=== PATIENT | female | born 1990 | race Caucasian/White ===

== ENCOUNTER 2023-11-06 11:27 | Outpatient (CLI) | payer OTHER, SELFPAY ==
[2023-11-06 13:15] LABS: HCG,Quantitative 77996 mIU/ml (0-5.42)
[2023-11-07 03:37] LABS: Progesterone 12.3 ng/mL (.)
== END 2023-11-06 23:59 | disposition home or self-care (01) ==
LOC: LAB 11:33
PROVIDERS: Visit Provider Obstetrics & Gynecology
DX: N92.6 Irregular menstruation, unspecified (principal)
CPT/HCPCS: 36415; 84144; 84702

== ENCOUNTER 2023-11-11 12:41 | Outpatient (CLI) | payer OTHER, SELFPAY ==
[2023-11-11 13:49] LABS: HIV (1&2) Antibody Rapid NON REACTIVE
[2023-11-11 14:00] LABS: Basophils % 0.2 % (0.1-2.0); Eosinophils % 0.4 % (0.1-12.0); Hematocrit 40.7 % (37.0-47.0); Hemoglobin 13.7 g/dL (12.2-16.2); Lymphocytes % 12.1 % (10-50); Mean Corpuscular HGB Conc 33.7 g/dL (31.8-35.4); Mean Corpuscular Hemoglobin 29.9 pg (27.0-31.2); Mean Corpuscular Volume 88.9 fl (81-99); Mean Platelet Volume 7.4 fl (7.4-10.4); Monocytes # 0.4 K/mm3 (0.1-1.0); Monocytes % 4.8 % (1.7-9.3); Neutrophils # 6.7 K/mm3 (1.8-7.8); Neutrophils % 82.6 % (37.0-80.0); Platelet Count 387 K/mm3 (142-424); Red Blood Count 4.58 M/mm3 (4.20-5.40); Red Cell Distribution Width 13.6 % (11.5-17.5); White Blood Count 8.1 K/mm3 (4.8-10.8)
[2023-11-13 08:49] LABS: HCV Ab Non Reactive (Non Reactive); Hepatitis B Surface Antigen Negative (Negative); Rubella Antibodies, IgG 5.73 index (Immune >0.99)
[2023-11-13 12:53] LABS: Rapid Plasma Reagin Ab Titer Non Reactive titer (NonRea<1:1)
[2023-11-14 06:55] LABS: Neisseria gonorrhoeae, NAA Negative (Negative)
== END 2023-11-11 23:59 | disposition home or self-care (01) ==
LOC: LAB 13:09
PROVIDERS: Visit Provider Obstetrics & Gynecology
DX: Z34.90 Encounter for supervision of normal pregnancy, unspecified, unspecified trimester (principal)
CPT/HCPCS: 86803; 86703; 85025; 86593; 86762; 86850; 87086; 87340; 87491; 87591

== ENCOUNTER 2024-01-29 12:46 | Outpatient (CLI) | payer OTHER, SELFPAY ==
--- NOTE | 2024-01-29 12:46 | US_ITS ---
PROCEDURE: US OB /MATERNAL DETAIL CLINICAL INDICATION: US OB Complete 20 week Anatomy Scan COMPARISON: No exams were available for comparison FINDINGS: Transabdominal sonographic images of the pelvis were obtained. From her established due date she is 20 weeks 2 days. Single viable intrauterine gestation. Breech position. Placenta: Anteriorplacenta grade 1. There is a placental Benavidez seen. There is a marginal cord insertion. There is an average amount of fluid. The cervix appears satisfactory. Closed and measuring 4.5 cm in length. Complete survey performed and was unremarkable on the submitted images as in PACS. No discrete anomalies identified on survey imaging by technologist. Active fetus. Three-vessel cord with satisfactory umbilical cord insertion. 4- chamber heart noted. Situs, aortic arch, LVOT, RVOT, three-vessel view appear normal. Survey of brain & ventricles Unremarkable. Cerebellum, thalamus, choroid plexus, cisterna magna appear normal. Face and neck survey unremarkable. Profile, nasion, lips and nose appeared normal. Diaphragm and chest views unremarkable. Abdomen: Both kidneys noted and unremarkable. Stomach and bladder noted and satisfactory. Spine: Survey of the spine satisfactory with no anomalies identified nor imaged. Cervical, thoracic, lower spine appear normal. Both arms and legs noted. Amniotic Fluid: Adequate. Measurements: Average ultrasound age 20weeks 4days. Estimated due date by ultrasound age 0206/13/2024. Estimated weight 343g BPD = 20weeks 6days, 68 percentile HC = 20weeks 6days, 67 percentile AC = 20weeks 0 days, 34 percentile FL = 20weeks 3days, 47 percentile Growth Percentile= 44 Heart Rate = 150bpm Cerebellum = 20weeks 1day, 67 percentile Humerus = 21weeks 0 days, 71 percentile HC/AC is 1.26 FL/BPD is 0.68 FL/AC is 0.23 IMPRESSION: 1. Viable fetus in the breech presentation with an anterior placenta grade 1. 2. There is a placental Benavidez and there appears to be a marginal cord insertion. Suggest a maternal medicine consult. 3. The fluid is within normal limits. 4. Anatomical scan appears normal. 5. biometry is consistent with the dates. Dictated by: Jesús Villarreal MD 01/30/2024 07:36 Jesús Villarreal MD in OV 01/30/2024 07:36
== END 2024-01-29 23:59 | disposition home or self-care (01) ==
LOC: RAD 12:46
PROVIDERS: PCP Obstetrics & Gynecology; Visit Provider Obstetrics & Gynecology
DX: Z36.3 Encounter for antenatal screening for malformations (principal); Z3A.20 20 weeks gestation of pregnancy
CPT/HCPCS: 76811

== ENCOUNTER 2024-04-07 13:45 | Outpatient (CLI) | payer OTHER, SELFPAY ==
[2024-04-07 14:17] LABS: Basophils # 0.1 K/mm3 (0-0.2); Basophils % 0.4 % (0.1-2.0); Eosinophils # 0.1 K/mm3 (0.0-0.4); Hematocrit 34.8 % (37.0-47.0); Hemoglobin 11.9 g/dL (12.2-16.2); Lymphocytes # 1.8 K/mm3 (0.7-4.5); Lymphocytes % 16.3 % (10-50); Mean Corpuscular HGB Conc 34.3 g/dL (31.8-35.4); Mean Corpuscular Hemoglobin 30.4 pg (27.0-31.2); Mean Corpuscular Volume 88.5 fl (81-99); Mean Platelet Volume 7.2 fl (7.4-10.4); Monocytes # 0.8 K/mm3 (0.1-1.0); Monocytes % 6.9 % (1.7-9.3); Neutrophils # 8.3 K/mm3 (1.8-7.8); Neutrophils % 75.3 % (37.0-80.0); Platelet Count 383 K/mm3 (142-424); Red Blood Count 3.93 M/mm3 (4.20-5.40); Red Cell Distribution Width 13.4 % (11.5-17.5)
[2024-04-07 14:59] LABS: Glucose,Fasting 110 mg/dl (74-100)
[2024-04-07 15:44] LABS: RPR W/RFX Titers Nonreactive (Nonreactive)
[2024-04-07 15:56] LABS: Glucose 1 Hour 117 mg/dL (74-100)
== END 2024-04-07 23:59 | disposition home or self-care (01) ==
LOC: LAB 13:46
PROVIDERS: Visit Provider Obstetrics & Gynecology
DX: Z34.90 Encounter for supervision of normal pregnancy, unspecified, unspecified trimester (principal)
CPT/HCPCS: 36415; 82951; 85025; 86592

== ENCOUNTER 2024-05-20 17:11 | Outpatient (CLI) | payer OTHER, SELFPAY | END 2024-05-20 23:59 | disposition home or self-care (01) | LOC: LAB.DROPOF 17:11 | PROVIDERS: PCP Obstetrics & Gynecology; Visit Provider Obstetrics & Gynecology | DX: Z34.03 Encounter for supervision of normal first pregnancy, third trimester (principal) | CPT/HCPCS: 86403 ==

== ENCOUNTER 2024-05-22 11:09 | Inpatient (IN) | payer OTHER, SELFPAY ==
[2024-05-22 10:19] VITALS: BMI 29.0
[2024-05-22 10:20] VITALS: BP 154/87; PULSE 102; RESP 18; TEMP 37.2; O2SAT 98; BMI 29.0
[2024-05-22 10:22] LABS: Microscopic, Urine URINE MICROSCOPIC (MICROSCOPIC)
[2024-05-22 10:25] LABS: Appearance,Urine CLEAR (Clear); Bilirubin,Urine Negative (Negative); Blood, Urine 2+ (Negative); Color,Urine YELLOW (Yellow); Glucose,Urine (UA) Negative (Negative); Ketones,Urine Negative (Negative); Leukocyte Esterase,Urine Negative (Negative); Nitrate,Urine Negative (Negative); PH,Urine 6.5 (5.0-8.5); Protein,Urine TRACE (Negative); Specific Gravity, Urine >= 1.030 (1.005-1.030); Urobilinogen,Urine 0.2 EU/dl (0.2)
[2024-05-22 10:33] LABS: Bacteria,Urine Trace /lpf; Mucus,Urine Trace /lpf; WBC,Urine Occasional #/hpf (0-3)
[2024-05-22 10:36] LABS: Amphetamine/Metha Screen,Urine Negative ng/ml (<1000); Benzodiazepines Screen,Urine Negative ng/ml (<200)
[2024-05-22 10:37] LABS: Barbiturates Screen,Urine Negative ng/ml (<200); Cannabinoid Screen,Urine Negative ng/ml (<50)
[2024-05-22 10:38] LABS: Cocaine Screen,Urine Negative ng/ml (<300)
[2024-05-22 10:39] LABS: Methadone Screen,Urine Negative ng/ml (<300)
[2024-05-22 10:40] LABS: Opiate Screen,Urine Negative ng/ml (<300); Phencyclidine Screen,Urine Negative ng/ml (<25)
[2024-05-22 11:05] LABS: Fetal Membrane Rupture (Rapid) Positive (Negative)
[2024-05-22 12:08] LABS: Basophils % 0.3 % (0.1-2.0); Eosinophils # 0.1 K/mm3 (0.0-0.4); Eosinophils % 0.6 % (0.1-12.0); Hematocrit 33.8 % (37.0-47.0); Hemoglobin 11.4 g/dL (12.2-16.2); Lymphocytes # 1.5 K/mm3 (0.7-4.5); Lymphocytes % 12.9 % (10-50); Mean Corpuscular HGB Conc 33.7 g/dL (31.8-35.4); Mean Corpuscular Hemoglobin 29.2 pg (27.0-31.2); Mean Corpuscular Volume 86.7 fl (81-99); Mean Platelet Volume 9.6 fl (7.4-10.4); Monocytes # 0.8 K/mm3 (0.1-1.0); Monocytes % 6.6 % (1.7-9.3); Neutrophils # 9.1 K/mm3 (1.8-7.8); Platelet Count 300 K/mm3 (142-424); White Blood Count 11.5 K/mm3 (4.8-10.8)
[2024-05-22 12:36] LABS: RPR W/RFX Titers Nonreactive (Nonreactive)
[2024-05-22] MEDS: DEXTROSE 5%-LACTATED RINGERS 1,000 ML 125 ML IV (12:48)
[2024-05-22] MEDS: LACTATED RINGERS 1000ML 1,000 ML 500 ML IV (12:48)
[2024-05-22] MEDS: AMPICILLIN SODIUM 2 GM in 0.9 % SODIUM CHLORIDE 100 ML IV (12:49)
--- NOTE | 2024-05-22 15:57 | P.PNANES_ITS ---
[facility] Disclaimer: The information contained in this section may have been updated after the patient was seen, as this information can be updated by other users. Medical History Awaiting removal of contraceptive intrauterine device (IUD) Surgical History No significant past surgical history Family History Other Cancer Heart attack Social History (Updated 05/22/24 @ 11:15 by Judy Castaneda RN) Smoking Status: Never smoker alcohol intake: never substance use type: denies use current occupational status: employed Travel in the last 8 weeks: None [facility] Anesthesia Checklist Patient Identification Patient Identification: Verbal (Name & ) Structural Data Admitted From: Inpatient Planned Operative Procedure/s: labor epidural Consent for Planned Operative Procedure(s) Verified: Yes Airway Assessment Mallampati Score:: Class II C-Spine Mobility Assessed: Yes TMJ Mobility Assessed: Yes Dentition: Good Dentition Neurological Assessment Level of Consciousness: Awake, Alert and Appropriate Anesthesia Plan Anesthesia Risk discussed: Yes Anesthesia Plan: Verified ASA Class: II Anesthesia Type: Epidural
--- NOTE | 2024-05-22 16:11 | EXP.HP ---
History of Present Illness *Admission Date: 05/22/24 *Reason for visit:: Labor *History of present illness: Melanie Morales is a 34 yo who presented at 36w4d with SROM around 0730 on 05/22/24. BRAYAN established by 9wk US. Pt reports clear fluid. She is feeling her contractions every 3-7 minutes. Endorses good movement. 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 A+, antibody negative, rubella immune, hepatitis B negative, hepatitis C negative, RPR negative, HIV negative 1 hour GTT: 117 GBS negative PFSH PFSH Disclaimer: The information contained in this section may have been updated after the patient was seen, as this information can be updated by other users. Medical History Awaiting removal of contraceptive intrauterine device (IUD) Surgical History No significant past surgical history Family History Other Cancer Heart attack Social History (Updated 05/22/24 @ 15:58 by Rashel Kim CRNA) Smoking Status: Never smoker alcohol intake: never substance use type: denies use current occupational status: employed Travel in the last 8 weeks: None Have you lived/traveled outside US in past 30 days?: No Contact w/someone who lives/traveled outside US past 30 days?: No Exposure to someone with infectious disease in past 14 days?: No Do you have a fever (greater than 100.4 F or 38 C)?: No Have you tested positive for COVID-19: No Exposed to someone with COVID-19 in past 14 days?: No Do you have a sore throat?: No Do you have a cough?: No Do you have any weakness?: No Are you experiencing any nausea/vomitting?: No Do you have any diarrhea?: No Are you experiencing any unusual bleeding?: No Do you have any muscle aches/pain?: No Do you have any abdominal pain?: No Are you experiencing loss of taste or smell?: No Other Medical History Have you received the Flu Vaccine for this season: No Have you received the Pneumonia Vaccine: No Review of Systems Review of Systems Review of systems (narrative): Review of Systems Constitutional: Denies fever, chills, and sweats Eyes: Denies vision change/ pain Respiratory: Denies cough and shortness of breath Cardiovascular: Denies chest pain and lightheadedness Gastrointestinal: Admits abdominal pain with contractions. Denies nausea, vomiting. Genitourinary: Denies dysuria and incontinence. enodrses LOF, clear fluid Musculoskeletal: Denies shoulder pain and back pain Neurological: Denies change in speech or headaches Meds Home Medications and Allergies Home Medications ?Medication ?Instructions ?Recorded ?Confirmed ?Type vits no.126-ferrous fum 1 tab PO DAILY 12/15/23 05/20/24 History 28 mg iron-folic acid 800 mcg tablet (Classic ) New Prescriptions to Start Prescriptions: Allergies Allergy/AdvReac Type Severity Reaction Status Date / Time No Known Allergies Allergy Verified 05/20/24 11:13 Exam Data for Last 24 hours Vital signs and Labs for Last 24 Hours: Temp Pulse Resp BP Pulse Ox O2 Del Method 98.9 F 102 H 18 154/87 H 98 Room Air 05/22/24 10:20 05/22/24 10:20 05/22/24 10:20 05/22/24 10:20 05/22/24 10:20 05/22/24 10:20 Laboratory Results - last 24 hr 05/22/24 10:14: Urine Color Yellow, Urine Appearance Clear, Urine pH 6.5, Ur Specific [place] >= 1.030, Urine Protein Trace, Urine Glucose (UA) Negative, Urine Ketones Negative, Urine Blood 2+ A, Urine Nitrate Negative, Urine Bilirubin Negative, Urine Urobilinogen 0.2, Ur Leukocyte Esterase Negative, Urine RBC 10-20, Urine WBC Occasional, Ur Squamous Epith Cells 5-10, Urine Bacteria Trace, Urine Mucus Trace, Urine Opiates Screen Negative, Urine Methadone Screen Negative, Ur Barbituates Screen Negative, Ur Phencyclidine Scrn Negative, Ur Amphetamines Screen Negative, U Benzodiazepines Scrn Negative, Urine Cocaine Screen Negative, U Marijuana (THC) Screen Negative 05/22/24 10:40: Membrane Rupture Positive A 05/22/24 11:42: WBC 11.5 H, RBC 3.90 L, Hgb 11.4 L, Hct 33.8 L, MCV 86.7, MCH 29.2, MCHC 33.7, RDW 13.0, Plt Count 300, MPV 9.6, Neut % (Auto) 79.0, Lymph % (Auto) 12.9, [place] % (Auto) 6.6, Eos % (Auto) 0.6, Baso % (Auto) 0.3, Neut # (Auto) 9.1 H, Lymph # (Auto) 1.5, [place] # (Auto) 0.8, Eos # (Auto) 0.1, Baso # (Auto) 0.0, RPR w/Rflx to Titer Nonreactive, Blood Type A Positive, Antibody Screen Negative I & O for Last 24 hours: Intake & Output 05/19/24 05/20/24 05/21/24 05/22/24 23:59 23:59 23:59 23:59 Weight 159 lb Narrative: General: patient is alert oriented in no acute distress and responds appropriately to questions. HEENT: NCAT, EOMI, moist mucous membranes, neck supple with full ROM Cardiovascular: RRR +S1/S2, no murmurs or rubs Pulmonary: Clear to auscultation bilaterally, nonlabored breathing, symmetric chest rise Abdominal: Gravid abdomen appropriate for gestation. No guarding, rebound, or tenderness noted. Extremities: trace edema, no tenderness or cyanosis noted Skin: Normal turgor, intact, warm. Negative for erythema, pallor, petechia, or lesions Neurologic: Negative for sensory or motor deficit Psychiatric: Normal affect, normal thought process, good judgment and insight, no depression or anxious mood appreciated. *Routine HEENT Exam Head: Present normocephalic and atraumatic Eye: Present EOMI, PERRL and normal accommodation; Absent conjunctival icterus, scleral injection, nystagmus or exophthalmos ENT: Present mucous membranes moist *Routine Respiratory Exam Respiratory: Present CTA bilaterally, normal respiratory effort, able to speak in complete sentences and symmetric chest movement; Absent accessory muscle use, decreased breath sounds, rales, respiratory distress, wheezes, distant breath sounds or diminished air movement *Routine Cardiovascular Exam Cardiovascular: Present RRR, Normal S1 and Normal S2; Absent murmur or gallop *Routine Abdominal Exam Abdominal: Present soft and normoactive bowel sounds; Absent tenderness, distended, rebound or guarding *Routine Rectal Exam Rectal:: deferred *Routine Genitalia Exam Genitalia:: normal female Assessment and Plan *Assessment and plan (1) Carrier of fragile X syndrome: Status: Acute Category: Medical Code(s): Z14.8 - Genetic carrier of other disease (2) Retained intrauterine device (IUD) during : Status: Acute Category: Medical Code(s): O26.30 - Retained intrauterine contraceptive device in , unspecified trimester (3) labor in third trimester with delivery: Status: Acute Category: Medical Code(s): O60.14X0 - labor third trimester with delivery third trimester, not applicable or unspecified Plan - Monitor vitals - Admit to L&D for labor monitoring and delivery - We will monitor her for a few hours as she is making adequate cervical change without intervention. If necessary discussed r/b/a of augmentation with Pitocin, per protocol - External FHR and TOCO monitor - Exam on admission: /-1 - GBS neg/ Blood type: A+ - Pt recieved one dose of PCN for GBS unknown status and then GBS neg was verified. - Hemoglobin: 11.4, Plt: 300 - Plan for epidural anesthesia - Anticipate vaginal delivery of male infant: []
[2024-05-22] MEDS: OXYTOCIN/RINGERS LACTATE 30 UNITS/500 ML BAG IV (16:32)
[2024-05-22] MEDS: OXYTOCIN/RINGERS LACTATE 30 UNITS/500 ML BAG 40 UNITS IV (20:12)
--- NOTE | 2024-05-22 20:33 | P.PCN_ITS ---
Delivery Note Delivery Date:: 05/22/24 Delivery Time:: 20:07 Anesthesia Type: Epidural Was labor medically induced?: No Induction method: none Gestational age (weeks): 36 delivered prior to 39 weeks?: Yes Justification for early elective delivery:: Active Labor Infant Gender: Male at 1 minute: 8 (color and tone ) at 5 minutes: 8 Delivery Procedure:: Preoperative diagnosis: 1. at 36 completed this weeks gestation, vertex 2. Rh positive 3. GBS negative 4. Spontaneous rupture membranes at 730 this morning 5. Active labor 6. Retained IUD arm, prepregnancy 7. Fragile X carrier Postoperative diagnosis: 1. at 36 completed this weeks gestation, vertex 2. Rh positive 3. GBS negative 4. Spontaneous rupture membranes at 730 this morning 5. Active labor 6. Retained IUD arm, prepregnancy 7. Fragile X carrier EBL: 150mL Specimen: 1. Cord blood 2. Cord gases Findings: 1. Liveborn viable male infant. Apgars 8/8 at 1 and 5 minutes respectively. Weight: 6lb8oz. 2. First degree midline perineal laceration Complications: None Procedure: Nonoperative spontaneous vaginal delivery Melanie Morales is a 34-year-old G1, P0 who presented this morning with regular painful contractions and leakage of fluid. Reports clear fluid with a large clots around 730 this morning. Without any augmentation she may have progressed to 7 cm. She received an epidural. Her contractions were noted to space out and she remains 7 for approximately 2 hours Pitocin was started for augmentation. She progressed to complete following that. The was noted to be in JASEN position. With effective maternal pushing there was a nonoperative spontaneous vaginal delivery at 2006. There was a nuchal cord x1 that was reduced without difficulty. The anterior right shoulder delivered, followed by the posterior shoulder without dystocia. The body and lower extremities delivered without difficulty. The was bulb suctioned and was crying immediately following delivery. The infant was placed on the maternal abdomen and greater than one minute was appreciated for delayed cord clamping. The umbilical cord was doubly clamped and cut. Cord blood and gasses were collected and sent for routine testing. The placenta delivered with cord traction and suprapubic contertraction. Pitocin was started. The uterus was firm and bleeding was minimal. The perineum, vaginal mcmullen, cervix, and paraurethral area were inspected thoroughly. There was a first The laceration was repaired in the usual fashion using 2-0 Vicryl suture. The laceration was hemostatic. The cervix and vaginal mcmullen were inspected and noted to be hemostatic. This conclu ded the delivery. The patient was counseled regarding the events of the delivery and repair. The patient tolerated the delivery well. All counts were correct by nursing. Mother and infant were doing well and bonding upon my leaving the delivery room. Laceration:: vaginal Placental Delivery Description: Spontaneous
[2024-05-22] MEDS: ACETAMINOPHEN 500MG TAB 1000 MG PO (21:03)
[2024-05-22] MEDS: BENZOCAINE-MENTHOL SPRAY 56GM CAN TP (21:04)
[2024-05-22] MEDS: WITCH HAZEL 40 PADS/BOX 1 EACH TP (21:04)
[2024-05-22] MEDS: IBUPROFEN 400 MG TABLET 800 MG PO (21:04)
[2024-05-23 07:28] LABS: Hematocrit 30.7 % (37.0-47.0); Hemoglobin 10.4 g/dL (12.2-16.2)
[2024-05-23 08:13] VITALS: BP 116/74; PULSE 82; RESP 16; TEMP 36.8; O2SAT 99
[2024-05-23] MEDS: IBUPROFEN 400 MG TABLET 800 MG PO ×2 (08:34→21:05)
[2024-05-23] MEDS: ACETAMINOPHEN 500MG TAB 1000 MG PO (08:34)
--- NOTE | 2024-05-23 08:59 | P.PN_ITS ---
Subjective *Date: 05/23/24 *Time: 10:43 Interval history: PPD # 1 s/p Feeling well. Pain controlled. Breast feeding. Lochia is appropriate. Voiding without difficulty and passing flatus. Tolerating regular diet. Denies fever/chills, chest pain and shortness of breath. No headaches, vision changes, lightheadedness/dizziness. No lower extremity swelling. Ambulating well ad hazel. Medical Exam Vital signs and Labs for Last 24 Hours: Vital Signs Temp Pulse Resp BP Pulse Ox O2 Del Method 05/22/24 10:20 98.9 F 102 H 18 154/87 H 98 Room Air Intake and Output 05/22/24 05/23/24 05/23/24 23:59 07:59 15:59 Output Total 500 / 500 Balance -500 / -500 Output: Output, Urine Amount 500 / 500 Laboratory Results - last 24 hr 05/22/24 10:14: Urine Color Yellow, Urine Appearance Clear, Urine pH 6.5, Ur Specific [place] >= 1.030, Urine Protein Trace, Urine Glucose (UA) Negative, Urine Ketones Negative, Urine Blood 2+ A, Urine Nitrate Negative, Urine Bilirubin Negative, Urine Urobilinogen 0.2, Ur Leukocyte Esterase Negative, Urine RBC 10-20, Urine WBC Occasional, Ur Squamous Epith Cells 5-10, Urine Bacteria Trace, Urine Mucus Trace, Urine Opiates Screen Negative, Urine Methadone Screen Negative, Ur Barbituates Screen Negative, Ur Phencyclidine Scrn Negative, Ur Amphetamines Screen Negative, U Benzodiazepines Scrn Negative, Urine Cocaine Screen Negative, U Marijuana (THC) Screen Negative 05/22/24 10:40: Membrane Rupture Positive A 05/22/24 11:42: WBC 11.5 H, RBC 3.90 L, Hgb 11.4 L, Hct 33.8 L, MCV 86.7, MCH 29.2, MCHC 33.7, RDW 13.0, Plt Count 300, MPV 9.6, Neut % (Auto) 79.0, Lymph % (Auto) 12.9, [place] % (Auto) 6.6, Eos % (Auto) 0.6, Baso % (Auto) 0.3, Neut # (Auto) 9.1 H, Lymph # (Auto) 1.5, [place] # (Auto) 0.8, Eos # (Auto) 0.1, Baso # (Auto) 0.0, RPR w/Rflx to Titer Nonreactive, Blood Type A Positive, Antibody Screen Negative 05/22/24 20:16: Cord ABG pH 05/23/24 07:09: Hgb 10.4 L, Hct 30.7 L I & O for Labs for Last 24 Hours: Intake & Output 05/20/24 05/21/24 05/22/24 05/23/24 23:59 23:59 23:59 23:59 Output Total 500 / 500 Balance -500 / -500 Weight 159 lb Head: Present atraumatic and normocephalic ENT: Present normal exam Neck: Present normal inspection and full ROM Respiratory: Present CTA bilaterally and normal respiratory effort Cardiac: Present Reg Rate and Rhythm GI: Present soft; Absent distention or tenderness Comments:: Uterine fundus firm and below umbilicus Rectal (female): Present deferred (female): Present deferred Extremities: Present normal inspection and full ROM Neuro: Present alert, awake and moves all extremities Assessment and Plan *Assessment and plan (1) Status post vaginal delivery: Status: Acute Category: Surgical (2) labor in third trimester with delivery: Status: Acute Qualifiers: Fetus number: single or unspecified fetus Qualified Code(s): O60.14X0 - labor third trimester with delivery third trimester, not truong licable or unspecified Category: Medical Code(s): O60.14X0 - labor third trimester with delivery third trimester, not applicable or unspecified (3) Marginal insertion of umbilical cord: Status: Acute Category: Medical (4) Retained intrauterine device (IUD) during : Status: Acute Qualifiers: Trimester: unspecified trimester Qualified Code(s): O26.30 - Retained intrauterine contraceptive device in , unspecified trimester Category: Medical Code(s): O26.30 - Retained intrauterine contraceptive device in , unspecified trimester Plan Continue routine care Encouraged increased ambulation AM Hgb 10.4 Plan d/c home PPD # 2 or PPD # 3
[2024-05-23] MEDS: WITCH HAZEL 40 PADS/BOX 1 EACH TP (16:17)
[2024-05-23 20:50] VITALS: BP 119/80; PULSE 86; RESP 17; TEMP 37; O2SAT 99
[2024-05-24 04:46] VITALS: BP 113/78; PULSE 93; RESP 16; TEMP 36.4; O2SAT 99
[2024-05-24 08:21] VITALS: BP 126/78; PULSE 88; RESP 16; TEMP 36.8; O2SAT 100
[2024-05-24] MEDS: IBUPROFEN 400 MG TABLET 800 MG PO (08:28)
[2024-05-24 08:50] LABS: Cord Blood PH 7.26 (7.35-7.45)
[2024-05-24 08:53] LABS: Cord Blood PH 7.38 (7.35-7.45)
--- NOTE | 2024-05-24 13:13 | EXP.DC.SUM ---
General Admission date:: 05/22/24 Discharge date: 05/24/24 HPI HPI HPI: Melanie Morales is a 34 yo who presented at 36w4d with SROM around 0730 on 05/22/24. BRAYAN established by 9wk US. Pt reports clear fluid. She is feeling her contractions every 3-7 minutes. Endorses good movement. 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 A+, antibody negative, rubella immune, hepatitis B negative, hepatitis C negative, RPR negative, HIV negative 1 hour GTT: 117 GBS negative Hospital Course Hospital Course Hospital Course: Melanie is a 34-year-old day #2 from a normal spontaneous vaginal delivery at 36 weeks and 4 days gestation after spontaneous rupture membranes and active labor. She did require low-dose Pitocin at around 7 cm for augmentation. She received an epidural for anesthesia. She delivered a live viable male infant on 05/22/2024 at 2006. Apgars were 8 and 8 at 1 and 5 minutes respectively. Infant name is Javier Riddle. No complications with delivery. No complications . Patient desired discharge home and routine discharge instructions reviewed in detail. Exam Data for Last 24 hours Vital signs and Labs for Last 24 Hours: Temp Pulse Resp BP Pulse Ox O2 Del Method 98.3 F 88 16 126/78 100 Room Air 05/24/24 08:21 05/24/24 08:21 05/24/24 08:21 05/24/24 08:21 05/24/24 08:21 05/24/24 08:21 Laboratory Results - last 24 hr 05/22/24 20:16: Cord ABG pH 7.38 05/22/24 20:21: Cord ABG pH 7.26 L I & O for Last 24 hours: Intake & Output 05/21/24 05/22/24 05/23/24 05/24/24 23:59 23:59 23:59 23:59 Output Total 500 / 500 Balance -500 / -500 Weight 159 lb Constitutional Constitutional: no acute distress *Routine HEENT Exam Head: Present normocephalic Eye: Present EOMI and PERRL ENT: Present mucous membranes moist *Routine Neck Exam Neck: Present supple; Absent lymphadenopathy *Routine Respiratory Exam Respiratory: Present CTA bilaterally *Routine Cardiovascular Exam Cardiovascular: Present RRR *Routine Abdominal Exam Abdominal: Present soft and normoactive bowel sounds; Absent tenderness *Routine Extremities Exam Extremities: Absent cyanosis, clubbing or edema *Routine Skin Exam Skin: Present warm; Absent rash *Routine Neurological Exam Neurological: Present alert and oriented X3 Results Data Completed and Pending Labs on day of discharge: Labs from last 24 hours 05/22/24 05/22/24 20:21 20:16 Cord ABG pH 7.26 L 7.38 DS: Diagnosis Discharge Diagnosis (1) Status post vaginal delivery: Status: Acute (2) labor in third trimester with delivery: Status: Acute Code(s): O60.14X0 - labor third trimester with delivery third trimester, not applicable or unspecified Qualifiers: Fetus number: single or unspecified fetus Qualified Code(s): O60.14X0 - labor third trimester with delivery third trimester, not applicable or unspecified (3) Marginal insertion of umbilical cord: Status: Acute (4) Retained intrauterine device (IUD) during : Status: Acute Code(s): O26.30 - Retained intrauterine contraceptive device in , unspecified trimester Qualifiers: Trimester: unspecified trimester Qualified Code(s): O26.30 - Retained intrauterine contraceptive device in , unspecified trimester Meds Home Medications and Allergies Home Medications ?Medication ?Instructions ?Recorded ?Confirmed ?Type vits no.126-ferrous fum 1 tab PO DAILY 12/15/23 05/23/24 History 28 mg iron-folic acid 800 mcg tablet (Classic ) acetaminophen 500 mg tablet 500 mg PO Q6H PRN fever or pain 05/24/24 Rx #30 tabs ferrous sulfate 325 mg (65 mg 325 mg PO DAILY #30 tabs 05/24/24 Rx iron) tablet,delayed release ibuprofen 800 mg tablet 800 mg PO Q8H PRN pain #60 tabs 05/24/24 Rx sennosides 8.6 mg tablet (Senna 8.6 mg PO BIDP PRN Constipation 05/24/24 Rx Lax) #60 tabs New Prescriptions to Start Prescriptions: acetaminophen Chelsea Santo ferrous sulfate Chelsea Santo ibuprofen Chelsea Santo sennosides [Senna Lax] Chelsea Santo Allergies Allergy/AdvReac Type Severity Reaction Status Date / Time No Known Allergies Allergy Verified 05/20/24 11:13 Discharge Plan Disposition Patient Disposition: Home, Self-Care Discharge Order Discharge Orders: Discharge Order (Routine); Ordered 05/24/24 Ordered By: Chelsea Santo Follow up Plan Follow up with: Chelsea Santo DO [Staff Physician] - Enter time for follow up Prescriptions/Medication Reconciliation: New sennosides [Senna Lax] 8.6 mg Tablet 8.6 mg PO BIDP PRN (Reason: Constipation) Qty: 60 2RF ibuprofen 800 mg tablet 800 mg PO Q8H PRN (Reason: pain) Qty: 60 2RF acetaminophen 500 mg tablet 500 mg PO Q6H PRN (Reason: fever or pain) Qty: 30 3RF ferrous sulfate 325 mg (65 mg iron) tablet,delayed release (DR/EC) 325 mg PO DAILY Qty: 30 3RF Continued Classic 28 mg iron- 800 mcg tablet 1 tab PO DAILY Problem Reconciliation Problems Reviewed?: Yes Patient Discharge Instructions ACTIVITY: Continue current activity DIET: regular diet Additional Instructions: Congratulations on the delivery of your sweet baby boy. It is my privilege to be your doctor and I am so thankful I could be a part of your special day. Discharge: -Take 800 mg Ibuprofen every 8 hours as needed for pain. You can also take 500-1000 mg of Tylenol in between doses, every 6-8 hours. -Colace can be taken 1-2 times per day as you need to soften your stool. Make sure to drink at least 8 cups of water per day. -Iron supplements can make you constipated. You can take iron tablets every other day if constipation is too bad. -Nothing in the vagina for 6 weeks - no intercourse, douching, tampons. No tub baths or swimming pools. -Do not lift greater than 20pounds for 2 weeks, this is the equivalent of 2 gallons of milk. -Reasons to return to L&D or call On-Call doctor - fever (greater than 100.4) - heavy vaginal bleeding (soaking through 1 pad in less than 2 hours or passing clots that are egg sized) - vaginal discharge (malodorous and/or purulent) - severe headaches, leg tenderness/edema, or any other symptoms that warrant immediate medical attention. depression/blues - Normal to feel anxious/overwhelmed for first 2 weeks - Talk to your doctor if: anxiety lasts over 2 weeks, trouble bonding with baby, withdrawing from other family members, thoughts of harming yourself or others Chelsea Santo DO [facility] [phone] *Nothing in the Vagina for 6 weeks* *No strenuous activity* *No heavy lifting* *No tub baths until okay's by MD* Print Language: Amharic Providers Primary Care Provider: Provider,Referral Admit Provider: Chelsea Santo Attending Provider: Chelsea Santo
== END 2024-05-24 17:45 | disposition home or self-care (01) | DRG 807 ==
LOC: OBOUT 11:10 → OB 11:10
PROVIDERS: Admitting Provider Obstetrics & Gynecology; Visit Provider Obstetrics & Gynecology
DX: O60.14X0 Preterm labor third trimester with preterm delivery third trimester, not applicable or unspecified (principal); Z37.0 Single live birth; Z3A.36 36 weeks gestation of pregnancy; O26.33 Retained intrauterine contraceptive device in pregnancy, third trimester; Z14.8 Genetic carrier of other disease
CPT/HCPCS: 36415; 59025; 80307; 81001; 82800; 84112; 85014; 85018; 85025; 86592; 86850; 94761; G0283; J0290; J3010; J7120

== ENCOUNTER 2024-10-12 12:01 | Outpatient (CLI) | payer OTHER, SELFPAY ==
--- OUTSIDE RECORDS SUMMARY | 2023-04-13 06:00 | XMS_ITS ---
Author Organization [facility] Address [address] [facility] [address] [place] [address] Care Team Providers Care Brush Stainer Name Role Phone Nisa Roblero Unavailable [phone] Lorena Candelaria Unavailable [phone] REASON FOR VISIT retained arm of IUD. also has paraguard. patient delayed surgery for removal. we are evaluating to make sure arm is still in in cervix and the paraguard..sdw Social History Sex Assigned At : Social History Observation Description Sex Assigned At Female Encounters Encounter Location Date Provider Diagnosis [facility] [address] [facility] [address] [place] [address] 04/13/2023 Lorena Candelaria Plan Of Treatment No Information Progress Notes * Chilo MORALESOB: 0 (34 yo F)Acc No.[id number]:04/13/2023 Progress Note Patient: Melanie English Provider: Leroy Candelaria DO :1990 A ge:33 Y S ex:Female Date:04/13/2023 Address:[address] [place], [place] [id number] Subjective: * Chief Complaints: * r etained arm of IUD. also has paraguard. patient delayed surgery for removal. we are evaluating to make sure arm is still in in cervix and the paraguard..sdw * Electronic signature of Preeti Candelaria DO on 10/12/2024 at 12:06 PM EDT Sign off status: Pending Visit Status: R /S (Rescheduled) * Provider: Leroy Candelaria DO Date: 06/14/2022 Generated for Karla rea/Jackie/Anuradhaitting on: 0 10/12/2024 12:06 PM EDT
--- OUTSIDE RECORDS SUMMARY | 2023-05-14 09:00 | XMS_ITS ---
Author Organization [facility] Address [address] [facility] [address] [place] [address] Care Team Providers Care Special Education Paraprofessional Name Role Phone Nisa Roblero Unavailable [phone] Lorena Candelaria Unavailable [phone] REASON FOR VISIT 1 Month F/U (retained IUD) Social History Sex Assigned At : Social History Observation Description Sex Assigned At Female Encounters Encounter Location Date Provider Diagnosis [facility] [address] [facility] [address] [place] [address] 05/14/2023 Lorena Candelaria Plan Of Treatment No Information Progress Notes * Chilo MORALESOB: 0 (34 yo F)Acc No.[id number]:05/14/2023 Progress Note Patient: Mleanie English Provider: Leroy Candelaria DO :1990 A ge:33 Y S ex:Female Date:05/14/2023 Address:[address] [place], [place] [id number] Subjective: * Chief Complaints: * 1 Month F/U (retained IUD) * Electronic signature of Preeti Candelaria DO on 10/12/2024 at 12:06 PM EDT Sign off status: Pending Visit Status: R /S (Rescheduled) * Provider: Leroy Candelaria DO Date: 0 05/14/2023 Generated for Karla rea/Jackie/Anna Mariesmitting on: 0 10/12/2024 12:06 PM EDT
--- OUTSIDE RECORDS SUMMARY | 2024-10-12 12:06 | XMS_ITS | Data Portability ---
Author Organization [facility] [facility] Address [address] [place] [address] Care Team Providers Care Electrical Wirer Name Role Phone TUNG LUKE Primary Care Provider Assessment No assessment recorded. Plan of Treatment Reminders Order Date Submit Date Provider Last Modified By Organization Details Last Modified Time Details Appointments FOLLOW UP [facility] 2024 01:10P M TUNG LUKE PA-C Not available Not available Not available Lab None recorded. Referral None recorded. Procedures None recorded. Surgeries None recorded. Imaging None recorded. Medication Orders tretinoin 0.05 % topical cream 2024 025 [facility] #[id number], [address], [id number], 07/11/2024 15:54:01 spironola ctone 25 mg tablet 2024 025 [facility] #[id number], [address], [id number], 07/11/2024 15:54:01 clindamyc in 1 % lotion 2024 025 [facility] #[id number], [id number], 07/11/2024 15:54:01 dicyclomi ne 10 mg capsule 2018 019 INTERFACE [facility] #[id number], [address], [place], [place], [id number], 04/12/2019 11:17:49 sulfameth oxazole 800 mg-trimet hoprim 160 mg tablet 2016 017 [email or web address] [facility] #[id number], [address], [place], [place], [id number], 04/12/2019 11:01:03 Patient TargetsNo targets recorded. Patient InstructionsNo instructions recorded. Reason for Referral None Reported. 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 From Automated Load;Provi danna: Shania Jonas tatus: Active Not Available [facility] 6 09:35:20 Acne 48963984 [facility] 20[facility] 5 13:13:33 Folliculi tis 52506799 Active 2024 [facility] 5 13:21:24 Problem Notes Documentation Provider Name and Address Organization Details Recorded Time Division Order Analyst Consult Note : [address] [address]LPXXAWLT, Ellie (id #[id number], : 1990) [facility] [address] [address] Date: 07/13/2024RE: Melanie Morales, : 1990, PT ID #[id number] Luke PA-C, I would like to thank you for referring Melanie Morales to our practice for consultation and evaluation. I have enclosed a copy of the office evaluation for your records. Sincerely, Electronically Signed by: TUNG LUKE [facility]-C, [facility] Reason/Date Follow-Up Acne 07/11/2024 - 01:00PM - [place] [place] History of Present IllnessPatient is here to follow up on acne Location: face, chest, backPrior treatments: Dash 50mg 1 PO BID, avar greenCurrently using: tretinoin 0.1% creamReports: Pt started using tretinoin after giving birthPt would like to be put on spironolactonePt currently on control and not breast feedingPt accompanied by baby Pt LV: 03/2022 with BrayeReview of SystemsROS as noted in the HPIPhysical ExamConstitutional: Patient is in no apparent distress and appears in good general healthNeurological: Alert and oriented to person, place, and timePsychiatric: Pleasant and cooperative Acne skin exam was performed:The areas examined include: scalp, hair, face, eyelids, lips, ears, neck, chest, back, right upper extremity, left upper extremity. Any detailed findings documented below: PIE on cheeks folliculocentric erythematous pustules on the buttockProcedure DocumentationNone recordedAssessment/Plan1. Acne-Pt has used Spironolactone 50mg BID and Tretinoin 0.1% previouslyPt was pleased with results yielded with usePt does plan to start OCP norethindrone Discussed starting low dose spironolactone Spironolactone can help decrease oiliness and reduce hormonal type acne. It is not FDA approved for acne, but frequently prescribed. Side effects discussed with pt: These include increased potassium, lowered BP, CHRISTIANSON, dizziness, fatigue, light headedness, menstrual irregularities, breast tenderness, and defects. Use contraception when taking this medication, as it can cause feminization of a male fetus. The FDA has assigned a black box warning to this drug related to tumor growth in rats with chronic use. Per pt, no h/o kidney issues.Must be seen at regular intervals to continue receiving medication. Will send Spironolactone 25mg 1 po BID Topical retinoid prescribed: tretinoin. Retinoids can cause irritation. Apply pea-sized amount to dry clean skin at night - start a few times a week, then work up to every other to every night, depending on how skin reacts. Avoid eyes and facial folds. Dryness and irritation is common, especially in the first few weeks. May apply moisturizer over retinoid to reduce irritation. Stop use and call clinic with severe irritation. Sun protect area of application. Do not use during or . Handout explaining use provided. 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 Folliculitis-The nature of the condition was explained. Worse with sweating, heat, and occlusion. Try to avoid these. Shower immediately after exercising or excessive sweating. Avoid tight-fitting clothing. Clindamycin 1% lotion prescribed to use qday, BID when flaring.Benzoyl peroxide OTC wash recommended - leave this on for 5 mins before washing. Explained chronic nature of the condition and that it tends to recur. Follow up in 4 bmthduQ73.8: Other specified follicular disorders clindamycin 1 % lotion - apply to buttock QAM, BID when flaring Qty: (1) 60 mL bottle Refills: 3 Pharmacy: [facility] #[id number] Return to Office TUNG LUKE PA-C for FOLLOW UP [facility] at [facility] on 11/08/2024 at 01:10 PM SARITA Benjamin [facility] 07/18/2024 08:04:06 Medical Equipment None Reported. Allergies No known drug allergies Medications Name Sig Start Date Stop Date Status Note LastModified by Organization Details LastModified Time tretinoin 0.1 % topical cream APPLY A PEA SIZED AMOUNT BY TOPICAL ROUTE ONCE DAILY AT BEDTIME 2022 active Not Available Not Available Not Avai lable ketoconazol e 2 % shampoo APPLY TO THE AFFECTED AREA(S), LATHER, LEAVE IN PLACE FOR 5 MINUTES, AND THEN RINSE OFF WITH WATER BY TOPICAL ROUTE ONCE DAILY 2022 active Not Available Not Available Not Avai lable fluconazole 150 mg tablet take one tab po x 1 dose and repeat x 1 dose in 3 days 04/12 completed Not Available Not Available Not Available tretinoin 0.05 % topical cream apply pea sized amount to clean dry face 2-3 nights per week, can increase to nightly as tolerated 2024 active Not Available Not Available Not Avai lable sulfamethox azole 800 mg-trimetho prim 160 mg tablet Take 1 tablet every 12 hours by oral route. 04/12 completed Not Available Not Available Not Available spironolact one 25 mg tablet 1 po BID 2024 active Not Available Not Available Not Avai lable hydroxyzine HCl 25 mg tablet 1/2 to 1 tablet as needed 2016 active Not Available Not Available Not Avai lable dicyclomine 10 mg capsule Take 1 capsule 3 times a day by oral route as needed. 2018 active Not Available Not Available Not Avai lable spironolact one 50 mg tablet Take 1 tablet twice a day by oral route. 04/12 completed Not Available Not Available Not Available clindamycin 1 % lotion apply to buttock QAM, BID when flaring 2024 active Not Available Not Available Not Avai lable norethindro ne active Not Available Not Available Not Available Vitals Date Recorded Body height Body weight Body mass index (BMI) Body temperature Systolic blood pressure Diastolic blood pressure Provider Name and Address Organization Details Last Updated DateTime 7 157.48 cm 89098.2 g 19.2 kg/m2 98 [degF] 100 mm[Hg] 60 mm[Hg] Chacha Beth [facility] 7 13:01:26 Date Recorded Body weight Body mass index (BMI) Body height Body temperature Heart rate Respiratory rate Oxygen saturation Oxygen saturation in Arterial blood by Pulse oximetry Systolic blood pressure Diastolic blood pressure Provider Name and Address Organization Details Last Updated DateTime 9 71316.6 8 g 22.1 kg/m2 157.48 cm 97.8 [degF] 86 /min 16 /min 99 % 99 % 100 mm[Hg] 64 mm[Hg] Charisse Salvador [facility] 9 11:00:02 Social History Question Answer Notes LastModified by Organizat ion Details LastModified Time Tobacco Smoking Status Never Smoker [facility] 05/23/2016 13:02:16 What Is Your Level Of Caffeine Consumption? Occasional [email or web address] Information not available 04/12/2019 How Much Tobacco Do You Chew? None [email or web address] Information not available 04/12/2019 Sunscreen Use? Yes [email or web address] Informatio n not available 07/11/2024 Tanning Bed Use No [email or web address] Informati on not available 07/11/2024 Are You Or Trying To Become ? No [email or web address] Information not available 07/11/2024 Are You On Control? Yes [email or web address] Information not available 07/11/2024 Are You ? No Information not available 07/11/2024 Marital Status [email or web address] Informati on not available 04/12/2019 How Much Tobacco Do You Smoke? No [email or web address] Information not available 04/12/2019 Sex: Unknown Functional Status Question Answer Note LastModified by Organizat ion Details LastModified Time What is your level of alcohol consumption? None [email or web address] Information not available 04/12/2019 Do you or have you ever used smokeless tobacco? 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 Never used electronic cigarettes [email or web address] Information not available 04/12/2019 Mental Status None recorded. Family History Relationship Description Onset Age of this Age Resolved Age Notes LastModified by Organization Details LastModified Time Father No current problems or disability [email or web address] Not available 06/25 12:54:43 Mother No current problems or disability [email or web address] Not available 06/25 12:54:43 Medical History Condition Response Skin Cancer N Autoimmune disease N Squamous Cell Carcinoma N Basal Cell Carcinoma N Melanoma N Acne Y Gynecological HistoryNo gynecological history recorded. Obstetrics History GPAL:G 0 P 0 0 0 0 Past Encounters Encounter ID Performer Location Encounter Start Date Encounter Closed Date Diagnosis/Indication Diagnosis SNOMED-CT Code Diagnosis ICD10 Code Diagnosis Note [id number] AIME PATE PA-C [address] [place] [address] 05/23/2016 12:53:49 05/26/2016 14:06:09 Abscess of axilla 25806331 L02.419 appears to have started out as folliculit is and progressed . advised pt to use warm wet compresses for several min multiple times a day on area. If not improving on the antibiotic or if worsens, rtc. 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 (needs my name and npi number as well as well as diagnosis code) Irritable bowel syndrome with diarrhea 698831865 K58.0 rx as needed Anxiety 19374658 F41.9 advised on ashwangga or L-theanine , meditation and deep breathing apps as well. [id number] TUNG LUKE PA-C [place] [address] [place] [address] 07/11/2024 12:44:41 07/11/2024 13:26:51 Acne 94017514 L70.8 Z79.899 Pt has used Spironolac tone 50mg BID and Tretinoin 0.1% previously Pt was pleased with results yielded with usePt does plan to start OCP norethindr one Discussed starting low dose spironolac tone Spironolac tone can help decrease oiliness and reduce hormonal type acne. It is not FDA approved for acne, but frequently prescribed . Side effects discussed with pt: These include increased potassium, lowered BP, CHRISTIANSON, dizziness, fatigue, light headedness , menstrual irregulari ties, breast tenderness , and defects. Use contracept ion when taking this medication , as it can cause feminizati on of a male fetus. The FDA has assigned a black box warning to this drug related to tumor growth in rats with chronic use. Per pt, no h/o kidney issues.Mus t be seen at regular intervals to continue receiving medication . Will send Spironolac tone 25mg 1 po BID Topical retinoid prescribed : tretinoin. Retinoids can cause irritation . Apply pea-sized amount to dry clean skin at night - start a few times a week, then work up to every other to every night, depending on how skin reacts. Avoid eyes and facial folds. Dryness and irritation is common, especially in the first few weeks. May apply moisturize r over retinoid to reduce irritation . Stop use and call clinic with severe irritation . Sun protect area of applicatio n. Do not use during or breastfeed ing. Handout explaining use provided. Will send Tretinoin 0.05% apply pea sized amount to clean dry face 2-3 nights per week, can increase to nightly as tolerated Follow up in four months Folliculitis 23701286 L7 3.8 The nature of the condition was explained. Worse with sweating, heat, and occlusion. Try to avoid these. Shower immediatel y after exercising or excessive sweating. Avoid tight-fitt ing clothing. Clindamyci n 1% lotion prescribed to use qday, BID when flaring.Be nzoyl peroxide OTC wash recommende d - leave this on for 5 mins before washing. Explained chronic nature of the condition and that it tends to recur. Follow up in 4 months Health Concerns Section Related Observation LastModified by Organization Detai ls LastModified Time None Recorded Concern Status LastModified by Organization Details LastModified Time None Recorded Advance Directives Directive None Recorded Payers Insurance Date Sequence Insurance Name Policy Number Policy Rees Covered Member ID Rees Member ID Guarantor Name 04/12/2019 1 *SELF PAY* Santosh frank Morales 07/11/2024 1 [place] [id number] Melanie Morales [id number] Melanie Morales 07/11/2024 1 [employer] II Melanie Morales [id number] Melanie Morales 04/12/2019 SLIDING FEE SCHEDULE - DISCOUNT Melanie Morales Notes Date Note Type Note Provider Name and Address Organization Details Recorded Time 05/23/2016 text/html patient presents with boils in her left greater than right axillary area that have been present for the past couple of weeks. 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 She ended up having MRSA and was treated successfully with an antibiotic. She has not had issues since that time but tends to get folliculitis in her axillary areas. In the left axillary area, she has several small boils per her report that are tender, and a couple of them have drained some pus. She only has a couple on the other side. She otherwise has been in usual state of health and denies fever/chills, headaches, sore throat, body aches, shortness of breath, chest pain, or nausea/vomiting/diar sherwin. She has not had [place], [address], [facility] 05/23/2016 13:23:09 04/12/2019 text/html patient has a lo ng history of significant fear of flying situational anxiety. She does have a toy schnauzer that she takes with her for flights in the past which has helped significantly. She is tried hydroxyzine in the past that caused too much sedation. Would like to try to avoid any Xanax for hydroxyzine at this point. She does have a 4 hour flight scheduled over the . Also notes significant diarrhea with IBS at night prior in the night of her flight as well. [place], [address], [facility] 04/12/2019 11:34:56 07/11/2024 text/html Patient is here to follow up on acne Location: face, chest, backPrior treatments: [place] 50mg 1 PO BID, avar greenCurrently using: tretinoin 0.1% creamReports: Pt started using tretinoin after giving birthPt would like to be put on spironolactonePt currently on control and not breast feedingPt accompanied by baby Pt LV: 03/2022 with Angelito LUKE PA-C [address] [place], [address], [facility] 07/13/2024 07:20:44 OBGyn Episode No OBEpisode recorded.
--- OUTSIDE RECORDS SUMMARY | 2024-10-12 12:07 | XMS_ITS | Patient Health Record ---
Author Organization [facility] Address [address] [facility] [address] [place] [address] Care Team Providers Care Forest Technician Name Role Phone Nisa Roblero Unavailable [phone] Allergies No Known Allergies Reason For Referral No Information Medications Medication SIG (Take, Route, Frequency, Duration) Notes Start Date End Date Status Spironolactone 100 MG Tablet 1 tablet Orally Once a day Active Paragard Intrauterine Copper - Intrauterine Device as directed Intrauterine Act johnnie Immunizations Vaccine Route Administration Date Status Comme nts SARS-COV-2 Unknown 04/27/2021 Administered 2021 Social History Tobacco Use: Social History Observation Description Date Details (start date - stop date) Never Smoker NA - NA Sex Assigned At : Social History Observation Description Sex Assigned At Female Social History Drugs/Alcohol: Social Info Question Answer Notes Drugs Have you used drugs other than those for medical reasons in the past 12 months? No Alcohol Screen Did you have a drink containing alcohol in the past year? No Points 0 Interpretation Negative Tobacco Use: Social Info Question Answer Notes Tobacco Use/Smoking Are you a nonsmoker Additional Details Category Social Info Options Details Miscellaneous: Domestic violence: No Section Notes: Denies Do you have any christianity or culture customs that your provider should know about?: No Do you now or have you ever smoked or used tobacco products?: No Have you ever used any recreational drugs?: No Have you had a drink containing alcohol in the last year?: No Would you object to blood products in the event of an emergency?: No Problems Problem Type SNOMED Code ICD Code Onset Dates Problem Status W/U Status Risk Notes Problem Removal of intrauterine contraceptive device done (situation) (815762218461265) Encounter for IUD removal (Z30.432) Active confirmed Problem Labial pain (N94.89) Active confirmed Problem Mechanical complication of intrauterine contraceptive device (844527363) Mechanical breakdown of intrauterine contraceptive device, initial encounter (T83.31XA) Active confirmed Problem Hypertrophy of vulva (27345095) Labial hypertrophy (N90.60) Active confirmed Problem Mechanical complication of intrauterine contraceptive device (429641980) Retained intrauterine contraceptive device (IUD) (T83.39XA) Active confirmed Plan Of Treatment No Information Insurance Providers Payer Name Payer Address Payer Phone Subscriber Number Group Number Insured Name Patient Relationship to Insured Coverage Start Date Coverage End Date Assured Benefits Administrators [address] [place] [id number] Melanie Morales Self - patient is the insured Medical (General) History Medical History History ICD Code None of these apply Surgical History Surgery Date(Month/Year) None
--- OUTSIDE RECORDS SUMMARY | 2024-10-12 12:07 | XMS_ITS | Clinical Summary ---
Author Organization [facility] Address [address] [place] [address] Care Team Providers Care Belt Glass Sander Name Role Phone Radha Kim APRN Primary Care Provider [phone] Allergies No known active allergies Medications tretinoin (Retin-A) 0.05 % cream APPLY PEA SIZED AMOUNT TOPICALLY TO THE AFFECTED AREA AT BEDTIME 3 Active ketoconazole (NIZOral) 2 % shampoo 3 Active clindamycin-erika zoyl peroxide (BenzaClin with Pump) gelIndications: Acne vulgaris Apply topically 2 (two) times a day. 50 g 2 4 Active Active Problems No known active problems Family History Medical History Relation Name Comments Hypertension Brother Heart attack Father B-Cell Lymphoma Mother Breast cancer Paternal Grandmother Hypertension Sister Relation Name Status Comments Brother Father Mother Paternal Grandmother Sister Social History Tobacco Use Types Packs/Day Years Used Date Smoking Tobacco: Never Smokeless Tobacco: Never Tobacco Cessation:Counseling Given: Not Answered Alcohol Use Standard Drinks/Week Comments Never 0 (1 standard drink = 0.6 oz pur e alcohol) Humiliation, Afraid, Rape, and Kick questionnair e Answer Date Recorded Within the last year, have y ou been afraid of your partner or ex-partner? No 09/02/2023 Within the last year, have y ou been humiliated or emotionally abused in other ways by your partner or ex-partner? No Within the last year, have y ou been kicked, hit, slapped, or otherwise physically hurt by your partner or ex-partner? No 09/02/2023 Within the last year, have y ou been raped or forced to have any kind of sexual activity by your partner or ex-partner? No 09/02/2023 Social Connection and Isolation Panel Answer Date Recorded In a typical week, how many times do you talk on the phone with family, friends, or neighbors? More than three times a week 09/02/2023 How often do you get togethe r with friends or relatives? More than three times a week 09/02/2023 How often do you attend chur or jehovah's witness services? More than 4 times per year 09/02/2023 Do you belong to any clubs o r organizations such as mandaen groups, unions, fraternal or athletic groups, or school groups? Yes 09/02/2023 How often do you attend meet ings of the clubs or organizations you belong to? More than 4 times per year 09/02/2023 Are you , , di vorced, , never , or living with a partner? 09/02/2023 AUDIT-C Answer Date Recorded Q1: How often do you have a drink containing alcohol? Never 09/02/2023 Q2: How many drinks containi ng alcohol do you have on a typical day when you are drinking? Patient does not drink Q3: How often do you have si x or more drinks on one occasion? Never 09/02/2023 Overall Financial Resource Strain (CARDIA) Answe r Date Recorded How hard is it for you to pa y for the very basics like food, housing, medical care, and heating? Not hard at all 09/02/2023 PHQ-2 Answer Date Recorded Patient Health Questionnaire-2 Score 0 09/02/2023 [facility] - Occupational Stress Questionnaire Answer Date Recorded Do you feel stress - tense, restless, nervous, or anxious, or unable to sleep at night because your mind is troubled all the time - these days? To some extent 09/02/2023 Exercise Vital Sign Answer Date Recorde d On average, how many days pe r week do you engage in moderate to strenuous exercise (like a brisk walk)? 5 days 09/02/2023 On average, how many minutes do you engage in exercise at this level? 60 min 09/02/2023 Hunger Vital Sign Answer Date Recorded Within the past 12 months, y ou worried that your food would run out before you got the money to buy more. Never true 09/02/19 24 Within the past 12 months, t he food you bought just didn't last and you didn't have money to get more. Never true 09/02/2023 PRAPARE - Transportation Answer Date Re corded In the past 12 months, has l ack of transportation kept you from medical appointments or from getting medications? No 11/2023 In the past 12 months, has l ack of transportation kept you from meetings, work, or from getting things needed for daily living? No 09/02/2023 Housing Stability Vital Sign Answer Huang e Recorded In the last 12 months, was t here a time when you were not able to pay the mortgage or rent on time? No 09/02/2023 In the last 12 months, how many places have you lived? 1 09/02/2023 In the last 12 months, was t here a time when you did not have a steady place to sleep or slept in a longterm (including now)? No 09/02/2023 Utilities Answer Date Recorded In the past 12 months has th e electric, gas, oil, or water company threatened to shut off services in your home? No 09/02/2023 Comments Unknown Sex and Gender Information Value Date Recorded Sex Assigned at Not on file Legal Sex Female 7:12 PM EDT Gender Identity Not on file Sexual Orientation Not on file Last Filed Vital Signs Vital Sign Reading Time Taken Comments Blood Pressure 108/72 09/02/2023 11:07 AM EDT Pulse 84 09/02/2023 11:07 AM EDT Temperature - - Respiratory Rate - - Oxygen Saturation - - Inhaled Oxygen Concentration - - Weight 57.4 kg (126 lb 8.7 oz) 09/02/2023 11:07 AM EDT Height 157.5 cm (5' 2 ) 09/02/2023 11:07 AM EDT Body Mass Index 23.15 09/02/2023 11:07 AM EDT Plan of Treatment Health Maintenance Due Date Last Done Comments [facility]-Infant/Child/Adol SDOH Screenings 1990 [facility]-Varicella Vaccines (1 of 2 - 13+ 2-dose series) 2003 HPV Vaccines (1 - 3-dose series) 2005 [facility]- SDOH Screenings 2008 [facility]-Adult SDOH Screenings 2008 [facility]-DTaP,Tdap,and Td Vaccine s (1 - Tdap) 2009 [facility]-Hepatitis B Vaccines (1 of 3 - 19+ 3-dose series) 2009 [facility]-Pap Smear 2011 [facility]-Cervical Cancer Screening 2020 [facility]-HPV/Cotest 2020 DTZ-HASNQ-19 Vaccine (2 - 20 24-25 season) 2023 12/07/2020 [facility]-Depression Screening 09/01/2024 09/02/2023 [facility]-Influenza Vaccine ([place]as[place] n Ended) 2024 [facility]-Zoster Vaccines (1 of 2) 2040 [facility]-HIV Screening Completed 09/02/2023 [facility]-Hepatitis C Screening Completed 09/02/2023 [facility]-HIB Vaccines Aged Out No longer e ligible based on patient's age to complete this topic [facility]-Hepatitis A Vaccines Aged Out No longer eligible based on patient's age to complete this topic [facility]-IPV Vaccines Aged Out No longer e ligible based on patient's age to complete this topic [facility]-Pneumococcal Vaccine: Pediatrics (0 to 5 Years) and At-Risk Patients (6 to 49 Years) Aged Out No long er eligible based on patient's age to complete this topic [facility]-Rotavirus Vaccines Aged Out No lo nger eligible based on patient's age to complete this topic Procedures Procedure Name Priority Date/Time Associated Diagnosis Comments HEPATITIS C ANTIBODY W/REFLEX TO HCV QUANT PCR Routine 09/02/2023 11:41 AM EDT Need for hepatitis C screening test HIV 1/2 ANTIBODY/ANTIGEN SCREEN WITH REFLEX TO HIV I/II DIFFERENTIATION Routine 09/02/2023 11:41 AM EDT Screening for human immunodeficiency virus from Last 3 Months or Most Recently Relevant to Health Maintenance Results * HIV 1 & 2 Antibody/Antigen Screen (09/02/2023 11:41 AM EDT) [facility] HIV 1 & 2 Antibody/Antigen Screen Non Reactive Non Reactive 09/02/2023 6:47 PM EDT [facility] Comment:Screening for HIV 1 & 2 antibodies, and P24 antigen is NONREACTIVE. No confirmatory testing is required. Blood Venous blood specimen / Unknown Venipuncture / Unknown 09/02/2023 11:41 AM EDT 09/02/2023 11:41 AM EDT Radha Kim APRN LAB BLOOD ORDERABLES Final Result Performing Organization Address City/[facility]/ZIP Co de Phone Number HEALTHCARE [facility] [address] [place] [address] * Hepatitis C Antibody w/Reflex to HCV Quant PCR (09/02/2023 11:41 AM EDT) [facility] Hepatitis C Antibody Negative Negative 09/02/2023 6:51 PM EDT [facility] Blood Venous blood specimen / Unknown Venipuncture / Unknown 09/02/2023 11:41 AM EDT 09/02/2023 11:41 AM EDT Radha Kim APRN LAB BLOOD ORDERABLES Final Result Performing Organization Address City/[facility] Co de Phone Number [facility] [address] [place] [address] from Last 3 Months or Most Recently Relevant to Health Maintenance Insurance [employer] Care Teams Belt Glass Sander Relationship Specialty Start Date End Date Radha Kim, JUAN DANIEL [address] [place] [address] PCP - General Family Medicine 09/02/23
[2024-10-12 13:58] LABS: HCG,Quantitative 15806 mIU/ml (0-5.42)
[2024-10-13 08:13] LABS: Progesterone 10.6 ng/mL (.)
== END 2024-10-12 23:59 | disposition home or self-care (01) ==
LOC: LAB 12:03
PROVIDERS: Visit Provider Obstetrics & Gynecology
DX: Z32.01 Encounter for pregnancy test, result positive (principal)
CPT/HCPCS: 36415; 84144; 84702

== ENCOUNTER 2024-11-04 15:02 | Outpatient (CLI) | payer OTHER, SELFPAY ==
--- OUTSIDE RECORDS SUMMARY | 2023-05-14 09:00 | XMS_ITS ---
Author Organization [facility] Address [address] [facility] [address] [place] [address] Care Team Providers Care Angiographer Name Role Phone Nisa Roblero Unavailable [phone] Lorena Candelaria Unavailable [phone] REASON FOR VISIT 1 Month F/U (retained IUD) Social History Sex Assigned At : Social History Observation Description Sex Assigned At Female Encounters Encounter Location Date Provider Diagnosis [facility] [address] [facility] [address] [place] [address] 05/14/2023 Lorena Candelaria Plan Of Treatment No Information Progress Notes * Chilo MORALESOB: 0 (34 yo F)Acc No.[id number]:05/14/2023 Progress Note Patient: Melanie English Provider: Leroy Candelaria DO :1990 A ge:33 Y S ex:Female Date:05/14/2023 Address:[address] [place], [place] [id number] Subjective: * Chief Complaints: * 1 Month F/U (retained IUD) * Electronic signature of Preeti Candelaria DO on 11/04/2024 at 03:04 PM EDT Sign off status: Pending Visit Status: R /S (Rescheduled) * Provider: Leroy Candelaria DO Date: 0 05/14/2023 Generated for Karla rea/Jackie/Anuradhaitting on: 0 11/04/2024 03:04 PM EDT
--- OUTSIDE RECORDS SUMMARY | 2024-11-04 15:04 | XMS_ITS | Patient Health Record ---
Author Organization [facility] Address [address] [facility] [address] [place] [address] Care Team Providers Care Tunnel Kiln Firer Name Role Phone Nisa Roblero Unavailable [phone] Allergies No Known Allergies Reason For Referral [...] Section Notes: Denies Do you have any pentecostal or culture customs that your provider should [...] Removal of intrauterine contraceptive device done (situation) (180099225135989) Encounter for IUD removal (Z30.432) Active confirmed Problem Labial pain (N94.89) Active confirmed Problem Mechanical complication of intrauterine contraceptive device (423200950) Mechanical breakdown of intrauterine contraceptive device, initial encounter (T83.31XA) Active confirmed Problem Hypertrophy of vulva (07714954) Labial hypertrophy (N90.60) Active confirmed Problem Mechanical complication of intrauterine contraceptive device (746070249) Retained intrauterine contraceptive device (IUD) (T83.39XA) Active confirmed Plan Of Treatment No Information Insurance Providers Payer Name Payer Address Payer Phone Subscriber Number Group Number Insured Name Patient Relationship to Insured Coverage Start Date Coverage End Date Assured Benefits Administrators [address] [place] [id number] Melanie Morales Self - patient is the insured Medical (General) History Medical History History ICD Code None of these apply Surgical History Surgery Date(Month/Year) None
--- OUTSIDE RECORDS SUMMARY | 2024-11-04 15:04 | XMS_ITS | Clinical Summary ---
Author Organization [facility] Address [address] [place] [address] Care Team Providers Care Ec Teacher Name Role Phone Radha Kim APRN Primary Care Provider [phone] Allergies No known active allergies Medications tretinoin [...] How often do you attend chur or sikh services? More than 4 times per year 09/02/2023 Do you belong to any clubs o r organizations such as uatsdin groups, unions, fraternal or athletic groups, or [...] Recorded Patient Health Questionnaire-2 Score 0 09/02/2023 [facility] - Occupational [...] place to sleep or slept in a long term (including now)? No 09/02/2023 Utilities Answer Date [...] 2011 [facility]-Cervical Cancer Screening 2020 [facility]-HPV/Cotest 2020 [id number] Vaccine (2 - 20 24-25 season) 2023 12/07/2020 [facility]-Depression Screening 09/01/2024 09/02/2023 [facility]-Influenza Vaccine (#1) 2024 [facility]-Zoster Vaccines (1 of 2) 2040 [...] 2 Antibody/Antigen Screen (09/02/2023 11:41 AM EDT) Pathologist [facility] HIV 1 & 2 Antibody/Antigen Screen Non Reactive Non Reactive 09/02/2023 6:47 PM EDT [facility] Comment:Screening for HIV 1 & 2 antibodies, and P24 antigen is NONREACTIVE. No confirmatory testing is required. Blood Venous blood specimen / Unknown Venipuncture / Unknown 09/02/2023 11:41 AM EDT 09/02/2023 11:41 AM EDT Radha Kim APRN LAB BLOOD ORDERABLES Final Result Performing Organization Address City/[facility]/ZIP Co de Phone Number HEALTHCARE [facility] [address] [place] [address] * Hepatitis C Antibody w/Reflex to HCV Quant PCR (09/02/2023 11:41 AM EDT) [facility] Hepatitis C Antibody Negative Negative 09/02/2023 6:51 PM EDT [facility] Blood Venous blood specimen / Unknown Venipuncture / Unknown 09/02/2023 11:41 AM EDT 09/02/2023 11:41 AM EDT Radha Kim PATIENT EDUCATOR LAB BLOOD ORDERABLES Final Result Performing Organization Address City/[facility] Co de Phone Number HEALTHCARE [facility] [address] [place] [address] from Last 3 Months or Most Recently Relevant to Health Maintenance Insurance [employer] Care Teams Ec Teacher Relationship Specialty Start Date End Date Radha Kim, PATIENT EDUCATOR [address] [place] [address] PCP - General Family Medicine 09/02/23
--- OUTSIDE RECORDS SUMMARY | 2024-11-04 15:04 | XMS_ITS | Data Portability ---
Author Organization [facility] Whitney DESOTO CLOSED Address [address] [place] [address] Care Team Providers Care Precinct I Police Sergeant Name Role Phone TUNG LUKE Primary Care Provider Assessment No assessment recorded. Plan of Treatment Reminders Order Date Submit Date Provider Last Modified By Organization Details Last Modified Time Details Appointments FOLLOW UP DAK 2024 01:10P M TUNG LUKE PA-C Not available Not available Not available Lab None recorded. Referral None recorded. Procedures None recorded. Surgeries None recorded. Imaging None recorded. Medication Orders tretinoin 0.05 % topical cream 2024 025 [facility] #[id number], [address], [id number], 07/11/2024 15:54:01 spironola ctone 25 mg tablet 2024 025 [facility] #[id number], [address], [id number], 07/11/2024 15:54:01 clindamyc in 1 % lotion 2024 025 [facility] #[id number], [address], [id number], 07/11/2024 15:54:01 dicyclomi ne 10 mg capsule 2018 019 INTERFACE [facility] #[id number], [address], [place], [place], [id number], 04/12/2019 11:17:49 sulfameth oxazole 800 mg-trimet hoprim 160 mg tablet 2016 017 [email or web address] 0 [facility] #73576, [address], [place], [place], [id number], 04/12/2019 11:01:03 Patient TargetsNo targets recorded. Patient InstructionsNo instructions recorded. Reason for Referral None Reported. 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 5 13:13:33 Folliculi tis 39233036 Active 2024 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 I have enclosed a copy of the office evaluation for your records. Sincerely, Electronically Signed by: TUNG LUKE PA-C, [facility] Reason/Date Follow-Up Acne 07/11/2024 - 01:00PM - SAMANTHA NEAL History of Present IllnessPatient is here to follow up on acne Location: face, chest, backPrior treatments: [place] 50mg 1 PO BID, avar greenCurrently using: tretinoin 0.1% creamReports: Pt started using tretinoin after giving birthPt would like to be put on spironolactonePt currently on control and not breast feedingPt accompanied by baby Pt LV: 03/2022 with BraKobyevdianaw of SystemsROS as noted in the HPIPhysical [...] nightly as tolerated Follow up in four ujbsmoU43.8: Other acne Z79.899: 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 Folliculitis-The nature of the condition [...] tends to recur. Follow up in 4 dacpixY45.8: Other specified follicular disorders clindamycin 1 % lotion - apply to buttock QAM, BID when flaring Qty: (1) 60 mL bottle Refills: 3 Pharmacy: Rep # Return to Office TUNG LUKE PA-C for FOLLOW UP [facility] on 11/08/2024 at 01:10 PM SARITA Benjamin [facility] 07/18/2024 08:04:06 Medical Equipment None Reported. Allergies [...] Body mass index (BMI) Body temperature Systolic And Diastolic Provider Name and Address Organization Details Last Updated DateTime 05/23/2016 157.48 cm 72648.2 g 19.2 kg/m2 98 [degF] 100/60 mm[Hg] [facility] 7 13:01:26 Date Recorded Body weight Body mass index (BMI) Body height Body temperature Heart rate Respiratory rate Oxygen saturation Oxygen saturation in Arterial blood by Pulse oximetry Systolic And Diastolic Provider Name and Address Organization Details Last Updated DateTime 9 49373.6 8 g 22.1 kg/m2 157.48 cm 97.8 [degF] 86 /min 16 /min 99 % 99 % 100/64 mm[Hg] Charisse [facility] 9 11:00:02 Social History Question Answer Notes LastModified by Organizat ion Details LastModified Time Tobacco Smoking Status Never Smoker Chacha SARITA Delatorre [facility] 05/23/2016 13:02:16 What Is Your Level Of Caffeine Consumption? Occasional [email or web address] Information not available 04/12/2019 How Much Tobacco Do You Chew? None [email or web address] Information not available 04/12/2019 Sunscreen Use? Yes Informatio n not available 07/11/2024 Tanning Bed Use No [email or web address] Informati on not available 07/11/2024 Are You Or Trying To Become ? No [email or web address] Information not available 07/11/2024 Are You On Control? Yes [email or web address] Information not available 07/11/2024 Are You ? No Information not available 07/11/2024 Marital Status [email or web address] Informati on not available 04/12/2019 How Much Tobacco Do You Smoke? No Information not available 04/12/2019 Sex: Unknown Functional Status Question Answer Note LastModified by Organizat ion Details LastModified Time What is your level of alcohol consumption? None [email or web address] Information not available 04/12/2019 Do you or have you ever used smokeless tobacco? 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 Never used electronic cigarettes [email or web address] Information not available 04/12/2019 Mental Status None recorded. Family History Relationship Description Onset Age of this Age Resolved Age Notes LastModified by Organization Details LastModified Time Father No current problems or disability [email or web address] Not available 06/25 12:54:43 Mother No current problems or disability Not available 06/25 12:54:43 Medical History Condition Response Squamous Cell Carcinoma N Acne Y Autoimmune disease N Melanoma N Basal Cell Carcinoma N Skin Cancer N Gynecological HistoryNo gynecological history recorded. Obstetrics History GPAL:G 0 P 0 0 0 0 Past Encounters Encounter ID Performer Location Encounter Start Date Encounter Closed Date Diagnosis/Indication Diagnosis SNOMED-CT Code Diagnosis ICD10 Code Diagnosis Note [id number] AIME PATE PA-C [facility] [address] [place] [address] 05/23/2016 12:53:49 05/26/2016 14:06:09 Abscess of axilla 32533296 L02.419 appears to have started out as folliculit is and progressed . advised pt to use warm wet compresses for several min multiple times a day on area. If not improving on the antibiotic or if worsens, rtc. [id number] MAKEDA JONAS PA-C [facility] [address] 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 (needs my name and npi number as well as well as diagnosis code) Irritable bowel syndrome with diarrhea 012625613 K58.0 rx as needed Anxiety 84733244 F41.9 advised on ashwangga or L-theanine , meditation and deep breathing apps as well. [id number] TUNG LUKE PA-C [place] [address] [place] [address] 07/11/2024 12:44:41 07/11/2024 13:26:51 Acne 29231398 L70.8 Z79.899 Pt has used Spironolac tone [...] tolerated Follow up in four months Folliculitis 98990317 L7 3.8 The nature of the condition [...] Santosh frank Morales 07/11/2024 1 [place] [id number] Melanie Morales [id number] Melanie Morales 07/11/2024 1 [place] Melanie Morales [id number] Melanie Morales 04/12/2019 SLIDING FEE SCHEDULE - DISCOUNT Melanie Morales Notes Date Note Type Note Provider Name and Address Organization Details Recorded Time 05/23/2016 text/html patient presents with boils in her left greater than right axillary area that have been present for the past couple of weeks. 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 She has not had antibiotics recently. AIME PATE PA-C [address] [place], [address], [facility] 05/23/2016 13:23:09 04/12/2019 text/html patient has a [...] the night of her flight as well. MAKEDA JONAS PA-C [address] [place], [address], [facility] 04/12/2019 11:34:56 07/11/2024 text/html Patient is here to follow up on acne Location: face, chest, backPrior treatments: [place] 50mg 1 PO BID, avar greenCurrently using: tretinoin 0.1% creamReports: Pt started using tretinoin after giving birthPt would like to be put on spironolactonePt currently on control and not breast feedingPt accompanied by baby Pt LV: 03/2022 with Angelito LUKE PA-C [address] [place], [address], [facility] 07/13/2024 07:20:44 OBGyn Episode No OBEpisode recorded.
[2024-11-04 15:23] LABS: Hematocrit 39.1 % (37.0-47.0); Hemoglobin 13.3 g/dL (12.2-16.2); Immature Granulocytes % 0.5 %; Mean Corpuscular HGB Conc 34.0 g/dL (31.8-35.4); Mean Corpuscular Hemoglobin 28.5 pg (27.0-31.2); Mean Corpuscular Volume 83.9 fl (81-99); Nucleated Red Blood Cells % 0 %; Platelet Count 383 K/mm3 (142-424); Red Blood Count 4.66 M/mm3 (4.20-5.40); Red Cell Distribution Width-SD 41.1 fL; White Blood Count 10.6 K/mm3 (4.8-10.8)
[2024-11-05 10:43] LABS: Rubella Antibodies, IgG 4.68 index (Immune >0.99)
[2024-11-05 12:00] LABS: RPR W/RFX Titers Nonreactive (Nonreactive)
== END 2024-11-04 23:59 | disposition home or self-care (01) ==
LOC: LAB 15:02
PROVIDERS: Visit Provider Obstetrics & Gynecology
DX: Z34.90 Encounter for supervision of normal pregnancy, unspecified, unspecified trimester (principal)
CPT/HCPCS: 36415; 85025; 86592; 86762; 86850

== ENCOUNTER 2024-11-23 16:45 | Outpatient (CLI) | payer OTHER, SELFPAY ==
--- OUTSIDE RECORDS SUMMARY | 2024-11-23 16:47 | XMS_ITS | Clinical Summary ---
Author Organization [facility] Address [address] [place] [address] Care Team Providers Care Oven Builder Name Role Phone Provider, No Known Primary Care Provider Unavail able Allergies No known active allergies Medications Vit-Fe Fumarate-FA ( vitamin 27-0.8) 27-0.8 MG tablet tablet Take 1 tablet by mouth Daily. 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 It is due to a CGG repeat expansion in the FMR1 gene. Intermediate expansion does not have a clinical phenotype and does not typically (with rare published exception) expand directly to a full mutation, though can lead to a premutation in offspring. Therefore, Ms Russell' offspring may themselves be a carrier of a premutation that could impact their children (Ms Russell' grandchildren) but her children are very unlikely to be clinically affected The expressed phenotype in those with the premutation or full mutation depends on several factors, including number of CGG repeats, FMR1 methylation, sex, and somatic cell mosaicism. Comments Yes Social History Tobacco Use Types Packs/Day Years Used Date Smoking Tobacco: Never Smokeless Tobacco: Never Tobacco Cessation:Counseling Given: Not Answered Alcohol Use Standard Drinks/Week Comments Never 0 (1 standard drink = 0.6 oz pur e alcohol) Abuse Screen Answer Date Recorded Unsafe at Home or Work/School Not on file Feels Threatened by Someone? Not on file Does Anyone Keep You from Co ntacting Others or Doint Things Outside the Home? Not on file 02/10/2024 Physical Sign of Abuse Present Not on file 1 Housing Stability Answer Date Recorded Current Living Arrangements Not on file 01/25 Potentially Unsafe Housing Conditions Not on juany e 02/10/2024 Family and Community Support Answer Huang e Recorded Help with Day-to-Day Activities Not on file 02/10/2024 Lonely or Isolated Not on file 02/10/2024 Employment Answer Date Recorded Do you want help finding or keeping work or a jim b? Not on file 02/10/2024 Disabilities Answer Date Recorded Concentrating, Remembering, or Making Decisions Difficulty Not on file 02/10/2024 Doing Errands Independently Difficulty Not on fi le 02/10/2024 Education Answer Date Recorded Help with school or training? Not on file Preferred Language Not on file 02/10/2024 Comments Yes Sex and Gender Information Value Date Recorded Sex Assigned at Not on file Legal Sex Female 8:03 AM EDT Gender Identity Not on file Sexual Orientation Not on file Last Filed Vital Signs Vital Sign Reading Time Taken Comments Blood Pressure 106/67 02/22/2024 9:19 AM EDT Pulse - - Temperature - - Respiratory Rate - - Oxygen Saturation - - Inhaled Oxygen Concentration - - Weight 63.5 kg (140 lb) 02/22/2024 9:19 AM EDT Height 154.9 cm (5' 1 ) 02/22/2024 9:22 AM EDT Body Mass Index 26.45 02/22/2024 9:19 AM EDT Plan of Treatment Health Maintenance Due Date Last Done Comments Annual Gynecologic Pelvic an d Breast Exam 1990 TDAP/TD VACCINES (1 - Tdap) 2009 PAP SMEAR 2011 COVID-19 Vaccine (2 - 2023-2 5 season) 2023 12/07/2020 ANNUAL PHYSICAL 02/18/2024 INFLUENZA VACCINE 01/25/2025 RSV Vaccine - Adults (1 - 1-dose 75+ series) 2065 HEPATITIS C SCREENING Completed 09/02/2023 , 09/02/2023 Pneumococcal Vaccine 0-49 Aged Out No longer eligible based on patient's age to complete this topic Insurance [employer] Care Teams Oven Builder Relationship Specialty Start Date End Date Provider, [place] [address] PCP - General 02/10/24
--- OUTSIDE RECORDS SUMMARY | 2024-11-23 16:47 | XMS_ITS | Clinical Summary ---
Author Organization [facility] Address [address] [place] [address] Care Team Providers Care Safety Leader Name Role Phone Radha Kim APRN Primary Care Provider [phone] Allergies No known active allergies Medications tretinoin [...] How often do you attend chur or christianity services? More than 4 times per year 09/02/2023 Do you belong to any clubs o r organizations such as congregational groups, unions, fraternal or athletic groups, or [...] Recorded Patient Health Questionnaire-2 Score 0 09/02/2023 [facility] - Occupational Stress [...] place to sleep or slept in a assisted (including now)? No 09/02/2023 Utilities Answer Date [...] 2011 [facility]-Cervical Cancer Screening 2020 [facility]-HPV/Cotest 2020 GAQ-ISBAQ-06 Vaccine (2 - 20 24-25 season) 2023 [...] Antibody/Antigen Screen (09/02/2023 11:41 AM EDT) Pathologist [facility] HIV 1 & 2 Antibody/Antigen Screen Non Reactive Non Reactive 09/02/2023 6:47 PM EDT [facility] Comment:Screening for HIV 1 & 2 antibodies, and P24 antigen is NONREACTIVE. No confirmatory testing is required. Blood Venous blood specimen / Unknown Venipuncture / Unknown 09/02/2023 11:41 AM EDT 09/02/2023 11:41 AM EDT Radha Kim APRN LAB BLOOD ORDERABLES Final Result Performing Organization Address City/[facility]/ZIP Co de Phone Number [facility] [address] [place] [address] * Hepatitis C Antibody w/Reflex to HCV Quant PCR (09/02/2023 11:41 AM EDT) [facility] Hepatitis C Antibody Negative Negative 09/02/2023 6:51 PM EDT [facility] Blood Venous blood specimen / Unknown Venipuncture / Unknown 09/02/2023 11:41 AM EDT 09/02/2023 11:41 AM EDT Radha Kim MONITOR TECH LAB BLOOD ORDERABLES Final Result Performing Organization Address City/[facility] Co de Phone Number [facility] [address] [place] [address] from Last 3 Months or Most Recently Relevant to Health Maintenance Insurance [employer] Care Teams Safety Leader Relationship Specialty Start Date End Date Radha Kim, MONITOR TECH [address] [place] [address] PCP - General Family Medicine 09/02/23
[2024-11-25 06:10] LABS: Neisseria gonorrhoeae, NAA Negative (Negative)
== END 2024-11-23 23:59 | disposition home or self-care (01) ==
LOC: LAB.DROPOF 16:45
PROVIDERS: PCP Obstetrics & Gynecology; Visit Provider Obstetrics & Gynecology
DX: O09.891 Supervision of other high risk pregnancies, first trimester (principal); O20.9 Hemorrhage in early pregnancy, unspecified; Z14.8 Genetic carrier of other disease
CPT/HCPCS: 87086; 87491; 87591

== ENCOUNTER 2025-01-30 13:59 | Outpatient (CLI) | payer OTHER, SELFPAY ==
--- NOTE | 2025-01-30 14:00 | US_ITS ---
PROCEDURE: US OB /MATERNAL DETAIL CLINICAL INDICATION: US OB Complete Anatomy Scan-20 week COMPARISON: No exams were available for comparison FINDINGS: Transabdominal sonographic images of the pelvis were obtained. From her established due date she is 21 weeks 2 days. Single viable intrauterine gestation. Cephalic position. Placenta: Anteriorplacenta grade 1. There is an average amount of fluid. The cervix appears satisfactory. Closed and measuring 2.69 cm in length. Complete survey performed and was unremarkable on the submitted images as in PACS. No discrete anomalies identified on survey imaging by technologist. Active fetus. Three-vessel cord with satisfactory umbilical cord insertion. 4- chamber heart noted. Situs, aortic arch, LVOT, RVOT, three-vessel view appear normal. Survey of brain & ventricles Unremarkable. Cerebellum, thalamus, choroid plexus, cisterna magna appear normal. Face and neck survey unremarkable. Profile, nasion, lips and nose appeared normal. Diaphragm and chest views unremarkable. Abdomen: Both kidneys noted and unremarkable. Stomach and bladder noted and satisfactory. Spine: Survey of the spine satisfactory with no anomalies identified nor imaged. Cervical, thoracic, lower spine appear normal. Both arms and legs noted. Amniotic Fluid: Adequate. MVP 3.14 cm. Measurements: Average ultrasound age 21weeks 1day. Estimated due date by ultrasound age 0206/11/2025. Estimated weight 408g BPD = 20weeks 5days HC = 21weeks 1day AC = 20weeks 6days FL = 21weeks 6days Growth Percentile= 41 Heart Rate = 144bpm Cerebellum = 21weeks 2days Humerus = 22weeks HC/AC is 1.2 FL/BPD is 0.77 FL/AC is 0.24 IMPRESSION: 1. Viable fetus in the cephalic presentation with an anterior placenta grade 1. 2. The fluid is within normal limits with an MVP 3.14 cm. 3. Anatomical scan appears normal. 4. biometry is consistent with the dates. Dictated by: Jesús Villarreal MD 01/30/2025 16:43 Jesús Villarreal MD in OV 01/30/2025 16:43
--- OUTSIDE RECORDS SUMMARY | 2025-01-30 14:01 | XMS_ITS | Patient Health Record ---
Author Organization [facility] Address [address] [place] [address] Care Team Providers Care Sight Mounter Name Role Phone Nisa Roblero Unavailable [phone] Allergies No Known Allergies Reason For Referral [...] Section Notes: Denies Do you have any samaritan or culture customs that your provider should [...] Removal of intrauterine contraceptive device done (situation) (607458142450763) Encounter for IUD removal (Z30.432) Active confirmed Problem Labial pain (N94.89) Active confirmed Problem Mechanical complication of intrauterine contraceptive device (222351656) Mechanical breakdown of intrauterine contraceptive device, initial encounter (T83.31XA) Active confirmed Problem Hypertrophy of vulva (57250838) Labial hypertrophy (N90.60) Active confirmed Problem Mechanical complication of intrauterine contraceptive device (545687766) Retained intrauterine contraceptive device (IUD) (T83.39XA) Active confirmed Plan Of Treatment No Information Insurance Providers Payer Name Payer Address Payer Phone Subscriber Number Group Number Insured Name Patient Relationship to Insured Coverage Start Date Coverage End Date Assured Benefits Administrators [address] [place] [id number] Melanie Morales Self - patient is the insured Medical (General) History Medical History History ICD Code None of these apply Surgical History Surgery Date(Month/Year) None
--- OUTSIDE RECORDS SUMMARY | 2025-01-30 14:01 | XMS_ITS | Clinical Summary ---
Author Organization [facility] Address [address] [place] [address] Care Team Providers Care Reinforcer Name Role Phone Radha Kim APRN Primary Care Provider [phone] Allergies No known active allergies Medications tretinoin [...] How often do you attend chur or latter-day services? More than 4 times per year 09/02/2023 Do you belong to any clubs o r organizations such as advent groups, unions, fraternal or athletic groups, or [...] Recorded Patient Health Questionnaire-2 Score 0 09/02/2023 [facility] - Occupational [...] of 2 - 13+ 2-dose series) 2003 [facility]- SDOH Screenings 2008 [facility]-Adult SDOH Screenings 2008 [facility]-DTaP,Tdap,and Td Vaccine s (1 - Tdap) 2009 [facility]-Hepatitis B Vaccines (1 of 3 - 19+ 3-dose series) 2009 [facility]-Pap Smear 2011 HPV Vaccines (1 - 3-dose SCD M series) 2017 [facility]-Cervical Cancer Screening 2020 [facility]-HPV/Cotest 2020 [facility]-Depression Screening 09/01/2024 09/02/2023 VIG-RPVXG-90 Vaccine (2 - 20 25-26 season) 2024 12/07/2020 [facility]-Influenza Vaccine (#1) 2024 [facility]-Zoster Vaccines (1 [...] 2 Antibody/Antigen Screen (09/02/2023 11:41 AM EDT) [facility] HIV 1 & 2 Antibody/Antigen Screen Non [...] Organization Address City/[facility]/ZIP Co de Phone Number [facility]ALTHCARE [facility] [address] [place] [address] * Hepatitis C Antibody w/Reflex to HCV Quant PCR (09/02/2023 11:41 AM EDT) [facility] Hepatitis C Antibody Negative Negative 09/02/2023 6:51 PM EDT [facility] Blood Venous blood specimen / Unknown Venipuncture / Unknown 09/02/2023 11:41 AM EDT 09/02/2023 11:41 AM EDT Radha Kim APRN LAB BLOOD ORDERABLES Final Result Performing Organization Address City/[facility] [[email or web address]] Co de Phone Number [facility] [address] [place] [address] from Last 3 Months or Most Recently Relevant to Health Maintenance Insurance [employer] Care Teams Reinforcer Relationship Specialty Start Date End Date Radha Kim, JUAN DANIEL [address] [place] [address] PCP - General Family Medicine 09/02/23
--- OUTSIDE RECORDS SUMMARY | 2025-01-30 14:01 | XMS_ITS | Clinical Summary ---
Author Organization [facility] Address [address] [place] [address] Care Team Providers Care Last Repairer Helper Name Role Phone Provider, No Known Primary [...] to a premutation in offspring. Therefore, Ms Morales' offspring may themselves be a carrier of a premutation that could impact their children (Ms Morales' grandchildren) but her children are very unlikely [...] 01/25 Potentially Unsafe Housing Conditions Not on jauny e 02/10/2024 Family and Community Support Answer [...] (1 - Tdap) 2009 PAP SMEAR 2011 ANNUAL PHYSICAL 02/18/2024 INFLUENZA VACCINE 11/25/2024 RSV Vaccine - Adults (1 - 1-dose 75+ series) 2065 HEPATITIS C SCREENING Completed 09/02/2023 , 09/02/2023 Pneumococcal Vaccine 0-49 Aged Out No longer eligible based on patient's age to complete this topic Insurance [employer] Care Teams Last Repairer Helper Relationship Specialty Start Date End Date Provider, No Known [facility] [place] [address] PCP - General 02/10/24
== END 2025-01-30 23:59 | disposition home or self-care (01) ==
LOC: RAD 13:59
PROVIDERS: PCP Obstetrics & Gynecology; Visit Provider Obstetrics & Gynecology
DX: O09.892 Supervision of other high risk pregnancies, second trimester (principal); Z36.3 Encounter for antenatal screening for malformations; Z14.8 Genetic carrier of other disease; Z3A.21 21 weeks gestation of pregnancy
CPT/HCPCS: 76811

== ENCOUNTER 2025-02-17 13:20 | Outpatient (CLI) | payer OTHER, SELFPAY ==
--- OUTSIDE RECORDS SUMMARY | 2025-02-17 13:23 | XMS_ITS | Clinical Summary ---
Author Organization [facility] Address [address] [place] [address] Care Team Providers Care Inspector Aluminum Boat Name Role Phone Provider, No Known Primary [...] topic Insurance [employer] Care Teams Inspector Aluminum Boat Relationship Specialty Start Date End Date Provider, No Known [facility] [place] [address] PCP - General 02/10/24
--- OUTSIDE RECORDS SUMMARY | 2025-02-17 13:23 | XMS_ITS | Patient Health Record ---
Author Organization [facility] Address [address] [facility] [address] [place] [address] Care Team Providers Care Cup Setter Lockstitch Name Role Phone Nisa Roblero Unavailable [phone] Allergies No Known Allergies Reason For Referral [...] Section Notes: Denies Do you have any baptist or culture customs that your provider should [...] Removal of intrauterine contraceptive device done (situation) (918032007372178) Encounter for IUD removal (Z30.432) Active confirmed Problem Labial pain (N94.89) Active confirmed Problem Mechanical complication of intrauterine contraceptive device (382718662) Mechanical breakdown of intrauterine contraceptive device, initial encounter (T83.31XA) Active confirmed Problem Hypertrophy of vulva (53853828) Labial hypertrophy (N90.60) Active confirmed Problem Mechanical complication of intrauterine contraceptive device (891363940) Retained intrauterine contraceptive device (IUD) (T83.39XA) Active confirmed Plan Of Treatment No Information Insurance Providers Payer Name Payer Address Payer Phone Subscriber Number Group Number Insured Name Patient Relationship to Insured Coverage Start Date Coverage End Date Assured Benefits Administrators [address] [place] [id number] Melanie Morales Self - patient is the insured Medical (General) History Medical History History ICD Code None of these apply Surgical History Surgery Date(Month/Year) None
--- OUTSIDE RECORDS SUMMARY | 2025-02-17 13:23 | XMS_ITS | Clinical Summary ---
Author Organization [facility] Address [address] [place] [address] Care Team Providers Care Senior Radiation Protection Technician Name Role Phone Radha Kim APRN Primary Care Provider [phone] Allergies No known active allergies Medications tretinoin [...] How often do you attend chur or mandaeism services? More than 4 times per year 09/02/2023 Do you belong to any clubs o r organizations such as yarsani groups, unions, fraternal or athletic groups, or [...] Recorded Patient Health Questionnaire-2 Score 0 09/02/2023 [facility] of Occupat ional Health - Occupational Stress [...] place to sleep or slept in a detention (including now)? No 09/02/2023 Utilities Answer Date [...] Health Maintenance Due Date Last Done Comments [facility]-/Child/Adol SDOH Screenings 1990 [facility]-Varicella Vaccines (1 of 2 - 13+ 2-dose series) 2003 [facility]- SDOH Screenings 2008 [facility]-Adult SDOH Screenings 2008 [facility]-DTaP,Tdap,and Td Vaccine s (1 - Tdap) 2009 [facility]-Hepatitis B Vaccines (1 of 3 - 19+ 3-dose series) 2009 [facility]-Pap Smear 2011 HPV Vaccines (1 - 3-dose SCD M series) 2017 [facility]-Cervical Cancer Screening 2020 [facility]-HPV/Cotest 2020 [facility]-Depression Screening 09/01/2024 09/02/2023 [id number] Vaccine (2 - 20 25-26 season) 2024 [...] 2 Antibody/Antigen Screen (09/02/2023 11:41 AM EDT) [facility] HIV 1 & 2 Antibody/Antigen Screen Non Reactive Non Reactive 09/02/2023 6:47 PM EDT [facility] Comment:Screening for HIV 1 & 2 antibodies, and P24 antigen is NONREACTIVE. No confirmatory testing is required. Blood Venous blood specimen / Unknown Venipuncture / Unknown 09/02/2023 11:41 AM EDT 09/02/2023 11:41 AM EDT Radha Kim APRN LAB BLOOD ORDERABLES Final Result Performing Organization Address City/[facility]/ZIP Co de Phone Number HEALTHCARE [facility] [address] [place] [address] * Hepatitis C Antibody w/Reflex to HCV Quant PCR (09/02/2023 11:41 AM EDT) [facility] [address] [facility] Hepatitis C Antibody Negative Negative 09/02/2023 6:51 PM EDT [facility] Blood Venous blood specimen / Unknown Venipuncture / Unknown 09/02/2023 11:41 AM EDT 09/02/2023 11:41 AM EDT Radha Kim APRN LAB BLOOD ORDERABLES Final Result Performing Organization Address City/[facility] Co de Phone Number [facility] [address] [place] [address] from Last 3 Months or Most Recently Relevant to Health Maintenance Insurance GENERIC COMMERCIAL Care Teams Senior Radiation Protection Technician Relationship Specialty Start Date End Date Radha Kim, JUAN DANIEL [address] [place] [address] PCP - General Family Medicine 09/02/23
--- NOTE | 2025-02-17 13:45 | US_ITS ---
PROCEDURE: US OB FOLLOW UP CLINICAL INDICATION: spinal views COMPARISON: US US OB /MATERNAL DETAIL from 01/30/2025 FINDINGS: Transabdominal sonographic images of the pelvis were obtained. The following parameters are obtained: From her established due date she is 23weeks 6days Viable fetus in the cephalic presentation with an anterior placenta grade 1. The cervix measures 3.29 cm heart rate: 146bpm bpm. Amniotic fluid: MVP 4.78 cm No obvious anomalies evident. profile seen, stomach, bladder, kidneys, three-vessel cord, four chamber heart appear normal. spine: Cervical, thoracic, lower spine appear normal. Kidneys: There is bilateral renal pelvis dilation measuring 4.9 mm and 4.2 mm. IMPRESSION: 1. Viable fetus in the cephalic presentation with an anterior placenta grade 1. 2. The fluid is within normal limits with an MVP 4.78 cm. 3. spine appears normal. There is mild bilateral renal pelvis dilation. Suggest follow-up at 28 weeks to follow the renal pelvis dilation. 4. The rest of the limited anatomical scan appears normal. Dictated by: Jesús Villarreal MD 02/18/2025 08:51 Jesús Villarreal MD in OV 02/18/2025 08:54
== END 2025-02-17 23:59 | disposition home or self-care (01) ==
LOC: RAD 13:20
PROVIDERS: PCP Obstetrics & Gynecology; Visit Provider Obstetrics & Gynecology
DX: O35.EXX0 Maternal care for other (suspected) fetal abnormality and damage, fetal genitourinary anomalies, not applicable or unspecified (principal); O09.522 Supervision of elderly multigravida, second trimester; Z3A.23 23 weeks gestation of pregnancy
CPT/HCPCS: 76816

== ENCOUNTER 2025-03-21 14:23 | Outpatient (CLI) | payer OTHER, SELFPAY ==
--- NOTE | 2025-03-21 14:30 | US_ITS ---
PROCEDURE: US OB FOLLOW UP CLINICAL INDICATION: repeat views for slightly enlarge kidneys COMPARISON: US US OB /MATERNAL DETAIL from 01/30/2025 US US OB FOLLOW UP from 02/17/2025 FINDINGS: Transabdominal sonographic images of the pelvis were obtained. The following parameters are obtained: From her established due date she is 28weeks 3days Viable fetus in the cephalic presentation with an anterior placenta grade 1. heart rate: 156bpm bpm. Average ultrasound age 28 weeks 6 days Estimated weight 1245 grams, 2 lb 12 oz BPD: 28weeks 5days, 46 percentile HC: 29weeks 3days, 47 percentile AC: 28weeks 2days, 35 percent FL: 28weeks 6days, 46 percentile HC/AC: 1.13 FL/BPD: 0.76 FL/AC: 0.23 Growth percentile: 41 Amniotic fluid: MVP 4.73 cm No obvious anomalies evident. profile seen, stomach, bladder, kidneys, three-vessel cord, four chamber heart appear normal. There continues to be mild bilateral renal pelvis dilation measuring 4.4 mm and 4.1 mm. IMPRESSION: 1. Viable fetus in the cephalic presentation with an anterior placenta grade 1. 2. The fluid is within normal limits with an MVP 4.73 cm. 3. There has been good interval growth with the fetus currently 41 percentile. 4. There continues to be mild bilateral renal pelvis dilation that is considered within normal limits at this point in the . No further follow-up is necessary. 5. The rest of the limited anatomical scan appears normal. Dictated by: Jesús Villarreal MD 03/21/2025 15:30 Jesús Villarreal MD in OV 03/21/2025 15:30
--- OUTSIDE RECORDS SUMMARY | 2025-03-21 14:37 | XMS_ITS | Patient Health Record ---
Author Organization [facility] Address [address] [facility] [address] [place] [address] Care Team Providers Care Clerical Proofreader Name Role Phone Nisa Roblero Unavailable [phone] Allergies No Known Allergies Reason For Referral [...] Section Notes: Denies Do you have any yarsanism or culture customs that your provider should [...] Removal of intrauterine contraceptive device done (situation) (305017746754757) Encounter for IUD removal (Z30.432) Active confirmed Problem Labial pain (N94.89) Active confirmed Problem Mechanical complication of intrauterine contraceptive device (542842918) Mechanical breakdown of intrauterine contraceptive device, initial encounter (T83.31XA) Active confirmed Problem Hypertrophy of vulva (82123097) Labial hypertrophy (N90.60) Active confirmed Problem Mechanical complication of intrauterine contraceptive device (388964747) Retained intrauterine contraceptive device (IUD) (T83.39XA) Active confirmed Plan Of Treatment No Information Insurance Providers Payer Name Payer Address Payer Phone Subscriber Number Group Number Insured Name Patient Relationship to Insured Coverage Start Date Coverage End Date Assured Benefits Administrators [address] [place] [id number] Melanie Morales Self - patient is the insured Medical (General) History Medical History History ICD Code None of these apply Surgical History Surgery Date(Month/Year) None
--- OUTSIDE RECORDS SUMMARY | 2025-03-21 14:37 | XMS_ITS | Clinical Summary ---
Author Organization [facility] Address [address] [place] [address] Care Team Providers Care Furniture Removalist Name Role Phone Radha Kim APRN Primary Care Provider [phone] Allergies No known active allergies Medications tretinoin [...] How often do you attend chur or spiritism services? More than 4 times per year 09/02/2023 Do you belong to any clubs o r organizations such as shinto groups, unions, fraternal or athletic groups, or [...] Recorded Patient Health Questionnaire-2 Score 0 09/02/2023 [facility] of Occupat ional Health - Occupational Stress [...] place to sleep or slept in a halfway (including now)? No 09/02/2023 Utilities Answer Date [...] 2020 [facility]-HPV/Cotest 2020 [facility]-Depression Screening 09/01/2024 09/02/2023 [id number] Vaccine (2 - 20 25-26 season) 2024 [...] 2 Antibody/Antigen Screen (09/02/2023 11:41 AM EDT) [facility] HIV 1 & 2 Antibody/Antigen Screen Non Reactive Non Reactive 09/02/2023 6:47 PM EDT [facility] Comment:Screening for HIV 1 & 2 antibodies, and P24 antigen is NONREACTIVE. No confirmatory testing is required. Blood Venous blood specimen / Unknown Venipuncture / Unknown 09/02/2023 11:41 AM EDT 09/02/2023 11:41 AM EDT Radha Kim APRN LAB BLOOD ORDERABLES Final Result Performing Organization Address City/[facility]/ZIP Co de Phone Number [facility]ALTHCARE [facility] [address] [place] [address] * Hepatitis C Antibody w/Reflex to HCV Quant PCR (09/02/2023 11:41 AM EDT) [facility] Hepatitis C Antibody Negative Negative 09/02/2023 6:51 PM EDT [facility] Blood Venous blood specimen / Unknown Venipuncture / Unknown 09/02/2023 11:41 AM EDT 09/02/2023 11:41 AM EDT Radha Kim APRN LAB BLOOD ORDERABLES Final Result Performing Organization Address City/[facility] Co de Phone Number [facility] [address] [place] [address] from Last 3 Months or Most Recently Relevant to Health Maintenance Insurance [employer]IC COMMERCIAL Care Teams Furniture Removalist Relationship Specialty Start Date End Date Radha Kim, JUAN DANIEL [address] [place] [address] PCP - General Family Medicine 09/02/23
--- OUTSIDE RECORDS SUMMARY | 2025-03-21 14:37 | XMS_ITS | Clinical Summary ---
Author Organization [facility] Address [address] [place] [address] Care Team Providers Care Design Manager Name Role Phone Provider, No Known Primary [...] FMR1 methylation, sex, and somatic cell mosaicism. Social History Tobacco Use Types Packs/Day Years Used Date Smoking Tobacco: Never Smokeless Tobacco: Never Tobacco Cessation:Counseling Given: Not Answered Alcohol Use Standard Drinks/Week Comments Never 0 (1 standard drink = 0.6 oz pur e alcohol) Comments No Sex and Gender Information Value Date Recorded [...] 1990 TDAP/TD VACCINES (1 - Tdap) 2009 ANNUAL PHYSICAL 02/18/2024 INFLUENZA VACCINE 11/25/2024 HEPATITIS C SCREENING Completed 09/02/2023 , 09/02/2023 Pneumococcal Vaccine 0-49 Aged Out No longer eligible based on patient's age to complete this topic Insurance [employer] Care Teams Design Manager Relationship Specialty Start Date End Date Provider, [place] [address] PCP - General 02/10/24
== END 2025-03-21 23:59 | disposition home or self-care (01) ==
LOC: RAD 14:24
PROVIDERS: PCP Obstetrics & Gynecology; Visit Provider Obstetrics & Gynecology
DX: O35.EXX0 Maternal care for other (suspected) fetal abnormality and damage, fetal genitourinary anomalies, not applicable or unspecified (principal); O09.523 Supervision of elderly multigravida, third trimester; O09.893 Supervision of other high risk pregnancies, third trimester; Z3A.28 28 weeks gestation of pregnancy
CPT/HCPCS: 76816

== ENCOUNTER 2025-03-24 12:55 | Outpatient (CLI) | payer OTHER, SELFPAY ==
--- OUTSIDE RECORDS SUMMARY | 2025-03-24 12:58 | XMS_ITS | Clinical Summary ---
Author Organization [facility] Address [address] [place] [address] Care Team Providers Care High School Combination Teacher Name Role Phone Radha Kim APRN Primary Care Provider [phone] Allergies No known active allergies Medications tretinoin [...] How often do you attend chur or restoration services? More than 4 times per year 09/02/2023 Do you belong to any clubs o r organizations such as worship groups, unions, fraternal or athletic groups, or [...] Patient Health Questionnaire-2 Score 0 09/02/2023 [facility] of Occupat ional Health - Occupational [...] place to sleep or slept in a prison (including now)? No 09/02/2023 Utilities Answer Date [...] 2020 [facility]-HPV/Cotest 2020 [facility]-Depression Screening 09/01/2024 09/02/2023 [id number] Vaccine (2 - 20 25-26 season) 2024 [...] 2 Antibody/Antigen Screen (09/02/2023 11:41 AM EDT) [facility] HIV 1 & 2 Antibody/Antigen Screen Non Reactive Non Reactive 09/02/2023 6:47 PM EDT [facility] Comment:Screening for HIV 1 & 2 antibodies, and P24 antigen is NONREACTIVE. No confirmatory testing is required. Blood Venous blood specimen / Unknown Venipuncture / Unknown 09/02/2023 11:41 AM EDT 09/02/2023 11:41 AM EDT Radha Kim APRN LAB BLOOD ORDERABLES Final Result Performing Organization Address City/[facility]/ZIP Co de Phone Number [facility] [address] [place] [address] * Hepatitis C Antibody w/Reflex to HCV Quant PCR (09/02/2023 11:41 AM EDT) [facility] Hepatitis C Antibody Negative Negative 09/02/2023 6:51 PM EDT [facility] Blood Venous blood specimen / Unknown Venipuncture / Unknown 09/02/2023 11:41 AM EDT 09/02/2023 11:41 AM EDT Radha Kim APRN LAB BLOOD ORDERABLES Final Result Performing Organization Address City/[facility] Co de Phone Number [facility] [address] [place] [address] from Last 3 Months or Most Recently Relevant to Health Maintenance Insurance [employer] Care Teams High School Combination Teacher Relationship Specialty Start Date End Date Radha Kim, JUAN DANIEL [address] [place] [address] PCP - General Family Medicine 09/02/23
--- OUTSIDE RECORDS SUMMARY | 2025-03-24 12:58 | XMS_ITS | Patient Health Record ---
Author Organization [facility] Address [address] [facility] [address] [place] [address] Care Team Providers Care Outside Solar Sales Consultant Name Role Phone Nisa Roblero Unavailable [phone] Allergies No Known Allergies Reason For Referral [...] Section Notes: Denies Do you have any zoroastrian or culture customs that your provider should [...] Removal of intrauterine contraceptive device done (situation) (930865622355403) Encounter for IUD removal (Z30.432) Active confirmed Problem Labial pain (N94.89) Active confirmed Problem Mechanical complication of intrauterine contraceptive device (052812084) Mechanical breakdown of intrauterine contraceptive device, initial encounter (T83.31XA) Active confirmed Problem Hypertrophy of vulva (92905798) Labial hypertrophy (N90.60) Active confirmed Problem Mechanical complication of intrauterine contraceptive device (069011978) Retained intrauterine contraceptive device (IUD) (T83.39XA) Active confirmed Plan Of Treatment No Information Insurance Providers Payer Name Payer Address Payer Phone Subscriber Number Group Number Insured Name Patient Relationship to Insured Coverage Start Date Coverage End Date Assured Benefits Administrators [address] [place] [address] [id number] Melanie Morales Self - patient is the insured Medical (General) History Medical History History ICD Code None of these apply Surgical History Surgery Date(Month/Year) None
--- OUTSIDE RECORDS SUMMARY | 2025-03-24 12:58 | XMS_ITS | Clinical Summary ---
Author Organization [facility] Address [address] [place] [address] Care Team Providers Care Flower Cheniller Name Role Phone Provider, No Known Primary [...] topic Insurance [employer] Care Teams Flower Cheniller Relationship Specialty Start Date End Date Provider, [place] [address] PCP - General 02/10/24
[2025-03-24 14:12] LABS: Hematocrit 35.2 % (37.0-47.0); Hemoglobin 11.8 g/dL (12.2-16.2); Immature Granulocytes % 0.8 %; Mean Corpuscular HGB Conc 33.5 g/dL (31.8-35.4); Mean Corpuscular Hemoglobin 29.7 pg (27.0-31.2); Mean Corpuscular Volume 88.7 fl (81-99); Nucleated Red Blood Cells % 0 %; Platelet Count 316 K/mm3 (142-424); Red Blood Count 3.97 M/mm3 (4.20-5.40); Red Cell Distribution Width-SD 42.5 fL; White Blood Count 10.8 K/mm3 (4.8-10.8)
[2025-03-24 14:21] LABS: Glucose 1 Hour 108 mg/dL (74-100)
[2025-03-25 07:36] LABS: RPR W/RFX Titers Nonreactive (Nonreactive)
== END 2025-03-24 23:59 | disposition home or self-care (01) ==
LOC: LAB 12:57
PROVIDERS: PCP Obstetrics & Gynecology; Visit Provider Obstetrics & Gynecology
DX: O09.523 Supervision of elderly multigravida, third trimester (principal); O09.893 Supervision of other high risk pregnancies, third trimester; Z3A.00 Weeks of gestation of pregnancy not specified
CPT/HCPCS: 36415; 82947; 85025; 86592